=== PATIENT | female | born 1940 | race Caucasian/White ===

== ENCOUNTER 2016-10-10 10:00 | Outpatient (CLI) | payer MEDICARE, BC ==
[2016-10-10 10:53] VITALS: BP 149/68; PULSE 82; RESP 16; TEMP 97.7
[2016-10-10] MEDS ORDERED: DENOSUMAB 60 MG/ML 1 ML SYRINGE SQ ONE (23:00)
== END 2016-10-10 12:13 | disposition home or self-care (01) ==
LOC: PROCWHC3 10:00
PROVIDERS: ATTEND Family Medicine
DX: M81.0 Age-related osteoporosis without current pathological fracture (principal)
CPT/HCPCS: 96372; J0897

== ENCOUNTER → 2016-11-27 | Outpatient (CLI) | payer MEDICARE, BC ==
--- NOTE | 2016-11-30 11:38 | MM ---
Reason for exam: screening (asymptomatic). Last mammogram was performed 1 year and 9 months ago. History: Patient is postmenopausal and has history of colon cancer at age 72. Family history of breast cancer in grandmother. Physical Findings: A clinical breast exam by your physician is recommended on an annual basis and results should be correlated with mammographic findings. MG 3D Screening Mammo W/Cad Bilateral CC and MLO view(s) were taken. Prior study comparison: March 03, 2015, bilateral MG screening mammo w CAD. July 02, 2013, mammogram, performed at [facility]. The breast tissue is heterogeneously dense. This may lower the sensitivity of mammography. No significant changes when compared with prior studies. ASSESSMENT: Negative, BI-RAD 1 RECOMMENDATION: Routine screening mammogram of both breasts in 1 year.
== END | disposition home or self-care (01) ==
LOC: RADMAMWWP 12:48
PROVIDERS: ATTEND Family Medicine
DX: Z12.31 Encounter for screening mammogram for malignant neoplasm of breast (principal)
CPT/HCPCS: 77063; G0202

== ENCOUNTER → 2017-04-11 | Outpatient (CLI) | payer MEDICARE, BC ==
[~2017-04-11] MED LIST: DENOSUMAB 60 MG/ML 1 ML SYRINGE SQ ONE
[2017-04-11 10:05] VITALS: BP 140/65; PULSE 80; RESP 16; TEMP 97.7
== END ==
LOC: PROCWHC3 09:45
PROVIDERS: ATTEND Family Medicine
DX: M81.0 Age-related osteoporosis without current pathological fracture (principal)
CPT/HCPCS: 96372; J0897

== ENCOUNTER → 2017-10-15 | Outpatient (CLI) | payer MEDICARE, BC ==
[2017-10-15 10:06] VITALS: BP 126/80; PULSE 80; RESP 16; TEMP 97.8
== END | disposition home or self-care (01) ==
LOC: PROCWHC3 09:57
PROVIDERS: ATTEND Family Medicine
DX: M81.0 Age-related osteoporosis without current pathological fracture (principal)
CPT/HCPCS: 96372; J0897

== ENCOUNTER 2017-10-17 09:19 | Day surgery (SDC) | payer MEDICARE, BC ==
[2017-10-15 12:36] VITALS: BMI 20.1
[~2017-10-17 09:19] MED LIST changes: -DENOSUMAB 60 MG/ML 1 ML SYRINGE SQ ONE; +LACTATED RINGERS 1,000 ML IV SCH; +LIDOCAINE 1% 20 ML VIAL (10MG/ML) FOR IV START INTRADERMA PRN
[2017-10-17 09:53] VITALS: TEMP 98.6
[2017-10-17] MEDS ORDERED: LIDOCAINE 1% 20 ML VIAL (10MG/ML) FOR IV START INTRADERMA ONE (10:00)
[2017-10-17] MEDS ORDERED: PROPOFOL 10 MG/ML 20 ML VIAL IV ONE (10:05)
--- NOTE | 2017-10-17 10:28 | P.PCN ---
Date of Procedure: 10/17/17 Procedure(s) Performed: BRIEF HISTORY: Patient is a 77-year-old pleasant female, scheduled for an elective colonoscopy as a part of surveillance of prior history of colon cancer diagnosed in 2011 for which she underwent surgery. She did not need any chemotherapy. She is scheduled for a surveillance colonoscopy today. Her last colonoscopy was at the time of diagnosis of colon cancer in 2011 1 to the patient. PROCEDURE PERFORMED: Colonoscopy with biopsy and the tattooing with Samara ink. PREOPERATIVE DIAGNOSIS: History of colon cancer. IV sedation per Anesthesia. PROCEDURE: After informed consent was obtained, the patient, was brought into the endoscopy unit. IV sedation was administered by Anesthesia under continuous monitoring. Digital rectal examination was normal. Initially the Olympus CF- 160 flexible video colonoscope was then inserted in the rectum, gradually advanced into the cecum without any difficulty. Careful examination was performed as the scope was gradually being withdrawn. Ileocecal valve and the appendiceal orifice were visualized and appeared normal. Prep was excellent. Mucosa of the cecum, ascending colon, appeared normal. In the hepatic flexure there was a 3 cm polypoid ulcerated mass identified and multiple biopsies were done from this area. Following this tattooing was performed with Samara ink at the distal margin of the mass. The transverse colon, descending colon, sigmoid colon, and rectum appeared normal. There was evidence of anastomosis at 20 cm from the anal was there appeared normal. Retroflexion was performed in the rectum and there was a thickened mucosal fold just proximal to the dentate line suspicious for rectal prolapse and this was biopsied. The patient tolerated the procedure well. IMPRESSION: 3 cm ulcerated polypoid mass in the hepatic flexure status post multiple biopsies, tattooing with Samara ink Thickened mucosal folds in the distal rectum just proximal to the dentate line suggestive of rectal prolapse Scattered sigmoid diverticulosis RECOMMENDATIONS: Findings of this examination were discussed with the patient as well as a family. She was advised to follow with the biopsy results. She' ll be seen in the office in 4-5 days. She will also be scheduled for a CT of the abdomen and pelvis.
[2017-10-17 10:38] VITALS: PULSE 80
[2017-10-17 10:50] VITALS: BP 133/77; RESP 16
== END 2017-10-17 11:30 | disposition home or self-care (01) ==
LOC: ORWHC2ENDO 09:19
PROVIDERS: ATTEND Internal Medicine Gastroenterology
DX: Z12.11 Encounter for screening for malignant neoplasm of colon (principal); Z85.038 Personal history of other malignant neoplasm of large intestine; C18.3 Malignant neoplasm of hepatic flexure; K62.6 Ulcer of anus and rectum; Z98.0 Intestinal bypass and anastomosis status; K21.9 Gastro-esophageal reflux disease without esophagitis; I10 Essential (primary) hypertension; J44.9 Chronic obstructive pulmonary disease, unspecified; M81.0 Age-related osteoporosis without current pathological fracture; Z79.899 Other long term (current) drug therapy; Z88.8 Allergy status to other drugs, medicaments and biological substances; Z91.041 Radiographic dye allergy status
CPT/HCPCS: 88305; 45380; 45381; J2704

== ENCOUNTER → 2017-10-18 | Outpatient (CLI) | payer MEDICARE, BC | END | disposition home or self-care (01) | LOC: LABWHC1 12:17 | PROVIDERS: ATTEND Internal Medicine Gastroenterology | DX: R19.09 Other intra-abdominal and pelvic swelling, mass and lump (principal) | CPT/HCPCS: 36415; 82565 ==

== ENCOUNTER → 2017-10-19 | Outpatient (CLI) | payer MEDICARE, BC ==
--- NOTE | 2017-10-26 09:21 | MR ---
EXAMINATION TYPE: MR pelvis wo/w con DATE OF EXAM: 10/19/2017 COMPARISON: Outside CT abdomen and pelvis February 14, 2012 HISTORY: Colon mass per order. Possible mass or polyp in colon Per patient. History of colon cancer r emoved 2011. CONTRAST: Standard multiplanar, multisequence MRI departmental protocol utilizing 6 mL intravenous Gadavist karyn olinium contrast. Findings: There is artifact from Pessary type device in the vaginal canal. Visualized uterus is retro verted in shape. No free fluid is seen in pelvis. No suspicious small or large bowel dilatation is identified. Evaluation of bowel is suboptimal on MRI due to normal bowel pulsation or motion. No definitive greater than 1 cm pelvic adenopathy is seen. There is disc space narrowing lumbosacral junction. There are Tarlov cysts in the sacrum. Osseous str uctures show no suspicious edema or enhancement. Visualized groin regions are felt within normal limits. IMPRESSION: As above. No suspicious pelvic adenopathy. No osseous metastatic disease. Correlate with CT and/or co lonoscopy.
== END | disposition home or self-care (01) ==
LOC: RADMRIMAIN 09:31
PROVIDERS: ATTEND Internal Medicine Gastroenterology
DX: N85.4 Malposition of uterus (principal); R19.09 Other intra-abdominal and pelvic swelling, mass and lump
CPT/HCPCS: 72197; A9581

== ENCOUNTER → 2017-10-20 | Outpatient (CLI) | payer MEDICARE, BC ==
--- NOTE | 2017-10-21 20:30 | MR ---
EXAMINATION TYPE: MR abdomen wo/w con DATE OF EXAM: 10/20/2017 COMPARISON: Outside CT report. No images available. HISTORY: History of colon carcinoma with outside CT abdomen stating multiple hepatic lesions that are too small to accurately characterize. CONTRAST: Standard multiplanar, multisequence MRI of the abdomen was obtained per the departmental protocol uti lizing 6 mL intravenous Gadavist gadolinium contrast. FINDINGS: There is no signal dropout of the liver on out of phase imaging to correspond to hepatic st eatosis. The liver contour is smooth. Mild intrahepatic biliary ductal dilatation is identified. With in the left hepatic lobe there is a T2 hyperintense 6 mm lesion on image 27 of T2 weighted fat sat ax ial sequence. An additional T2 hyperintense 8mm lesion is seen within the left hepatic lobe on image 30. Another left hepatic lobe 6 mm lesion is seen on image 24 and within the right hepatic lobe subca psular region on image 23 there are lesions measuring 6 mm in 5 mm. Another inferior right hepatic lo be 5 mm lesion is seen on image 12. A scant amount of perihepatic fluid is seen. All of these hepatic lesions demonstrate no enhancement and are most characteristic of benign cysts. No abnormal postcont rast enhancement is seen within the liver. Nonenhancing bilateral subcentimeter cortical renal cysts and cholelithiasis are redemonstrated. Adre nal glands are unremarkable. Spleen and pancreas are also unremarkable. No gross evidence of adenopat hy. Bone marrow signal appears within normal limits. Right middle lobe 7 mm pulmonary nodule is parti ally visualized. CT thorax is recommended. IMPRESSION: 1. The previously seen too small to accurately characterize hepatic lesions all appear as a benign he patic cyst on MR. However attention should be paid on follow-up exams given the patient's history of colon carcinoma. 2. 7 mm right middle lobe probable pulmonary nodule. CT thorax is recommended for further evaluation. 3. Benign cortical renal cysts 4. Cholelithiasis.
== END | disposition home or self-care (01) ==
LOC: RADMRIMAIN 09:32
PROVIDERS: ATTEND Internal Medicine Gastroenterology
DX: K76.9 Liver disease, unspecified (principal); N28.1 Cyst of kidney, acquired; K80.20 Calculus of gallbladder without cholecystitis without obstruction
CPT/HCPCS: 74183; A9581

== ENCOUNTER → 2017-11-19 | Outpatient (CLI) | payer MEDICARE, BC ==
--- NOTE | 2017-11-19 11:14 | FL ---
EXAMINATION TYPE: FL barium enema DATE OF EXAM: 11/19/2017 COMPARISON: NONE HISTORY: Abnormal colonoscopy TECHNIQUE: Approximately 2 minutes and 7 seconds of fluoroscopy utilized. Limited view the abdomen demonstrates a nonspecific gas pattern with evidence of previous surgery. Ca theter is noted overlying the rectum. Gallstones and possible porcelain gallbladder noted. Diffuse os teopenia and degenerative changes spine. Calcification right upper quadrant could relate to a renal s tone. Barium was instilled through the rectum to the level the cecum. There is no evidence of obstruction. No annular constricting lesion. Could not exclude a polypoid lesion within the hepatic flexure. Corre late clinically. There is some limitation exam due to the patient's mobility. IMPRESSION: 1. Findings are suspicious for a polypoid lesion involving the right colon near the hepatic flexure a long the lateral wall measuring approximately 3 cm. Correlate with direct visualization. 2. No evidence of obstruction.
[2017-11-19 11:31] LABS: Anisocytosis Slight; Basophils % (A) 0 %; Eosinophils % (A) 0 %; HCT 35.1 % (34.0-46.0); HGB 10.2 gm/dL (11.4-16.0); Hypochromasia Marked; Lymphocytes # (A) 0.5 k/uL (1.0-4.8); Lymphocytes % (A) 10 %; MCH 20.5 pg (25.0-35.0); MCHC 29.1 g/dL (31.0-37.0); MCV 70.3 fL (80.0-100.0); Mean Platelet Volume 6.7; Microcytosis Marked; Monocytes # (A) 0.2 k/uL (0-1.0); Monocytes % (A) 4 %; Neutrophils # (A) 4.4 k/uL (1.3-7.7); Neutrophils % (A) 84 %; Platelet Count 276 k/uL (150-450); RDW 16.8 % (11.5-15.5); WBC 5.2 k/uL (3.8-10.6)
[2017-11-19 11:37] LABS: ALT 28 U/L (9-52); AST 28 U/L (14-36); Albumin 4.4 g/dL (3.5-5.0); Alkaline Phosphatase 78 U/L (38-126); Anion Gap 16 mmol/L; Blood Urea Nitrogen 16 mg/dL (7-17); Calcium 9.3 mg/dL (8.4-10.2); Carbon Dioxide 22 mmol/L (22-30); Chloride 104 mmol/L (98-107); Glucose 78 mg/dL (74-99); Potassium 4.2 mmol/L (3.5-5.1); Sodium 142 mmol/L (137-145); Total Bilirubin 0.6 mg/dL (0.2-1.3); Total Protein 7.4 g/dL (6.3-8.2)
--- NOTE | 2017-11-19 11:59 | XR ---
EXAMINATION TYPE: XR chest 2V DATE OF EXAM: 11/19/2017 COMPARISON: MRI abdomen October 20, 2017 HISTORY: Presurgical study. TECHNIQUE: Frontal and lateral views of the chest are obtained. FINDINGS: There is chronic parenchymal change without suspicious focal air space opacity, pleural ef fusion, or pneumothorax seen. The cardiac silhouette size is within normal limits with atherosclero tic change in the aorta. Rounded 6 mm nodule right lung base likely corresponds to patient's nipple o r nodule on MRI which is stable from outside CT right middle lobe performed February 14, 2012. The osse ous structures are demineralized.. Underlying S-shaped scoliosis is present. IMPRESSION: Chronic changes without acute pulmonary process.
== END | disposition home or self-care (01) ==
LOC: RADFLMAIN 08:17
PROVIDERS: ATTEND Surgery Plastic and Reconstructive Surgery
DX: C18.9 Malignant neoplasm of colon, unspecified (principal); R91.8 Other nonspecific abnormal finding of lung field; Z01.812 Encounter for preprocedural laboratory examination; Z91.041 Radiographic dye allergy status; Z88.8 Allergy status to other drugs, medicaments and biological substances
CPT/HCPCS: 36415; 71046; 74270; 80053; 85025

== ENCOUNTER 2017-11-29 09:04 | Inpatient (IN) | payer MEDICARE, BC ==
[~2017-11-29 09:04] MED LIST changes: +ACETAMINOPHEN TAB 500 MG TAB PO ONE; +ALVIMOPAN 12 MG CAPSULE PO ONE; +Antibiotics per Pharmacy 1 EACH MISC MISCELLANE PRN; +DEXAMETHASONE SOD PHOSPHATE 10 MG/ML 1 ML VIAL IV ONE; +HEPARIN SODIUM,PORCINE 5,000 UNIT/ML 1 ML VIAL SQ ONE; -LACTATED RINGERS 1,000 ML IV SCH; -LIDOCAINE 1% 20 ML VIAL (10MG/ML) FOR IV START INTRADERMA PRN; +MORPHINE SULFATE 2 MG/ML SYRINGE IV PRN; +ONDANSETRON 4 MG/2 ML VIAL IVP ONE; +ceFAZolin IN SWFI 2 GM/20 ML SYRINGE IVP ONE; +metroNIDAZOLE-NS PMX 500 MG in SALINE 1 100ML.BAG IVPB ONE
[2017-11-29 09:54] LABS: Glucose,Whole Blood 80 mg/dL (75-99)
[2017-11-29] MEDS: LACTATED RINGERS 1,000 ML IV SCH (10:06)
[2017-11-29 10:16] LABS: INR 1.1 (<1.2); Prothrombin Time 10.9 sec (9.0-12.0)
--- NOTE | 2017-11-29 10:32 | P.GSHP ---
History of Present Illness H&P Date: 11/29/17 CHIEF COMPLAINT: History of colon cancer. HISTORY OF PRESENT ILLNESS: Yesenia Do is a 77 years-old female who comes in with a previous history of colon cancer where she had previous left hemicolectomy done in the last 10+ years. This was done as a laparoscopic approach. She does remember all of the details related to her surgery with a partial colon resection. Separately, her daughter is at bedside. No reports of weight loss or abdominal pain. No blood in stools. Essentially, colonoscopies have been done for screening for previous history of colon cancer. PAST MEDICAL HISTORY: Please see list. PAST SURGICAL HISTORY: Please see list. MEDICATIONS: Please see list. ALLERGIES: Please see list. SOCIAL HISTORY: No illicit drug use FAMILY HISTORY: No reports of Crohn disease or ulcerative colitis. REVIEW OF ORGAN SYSTEMS: Cardiovascular: No reports of chest pain or heart attacks. CONSTITUTIONAL: No fevers or chills. HEENT: Denies any trouble with vision, hearing or nosebleeds. No difficulty swallowing. LYMPHATIC: The patient denies any lumps and bumps around the neck. ENDOCRINE: Denies any thyroid disorders. Denies any blood sugar glucose intolerance. RESPIRATORY: Denies pneumonia. Denies any troubles with breathing or dyspnea on exertion. GASTROINTESTINAL: Denies fatty food intolerance. Denies change in bowel habits and gas bloat. GENITOURINARY: Denies any blood in urine or increased urinary frequency. MUSCULOSKELETAL: Denies any back pain, stiffness or joint arthritis. NEUROLOGIC: Denies any numbness or tingling along the distal extremities. No seizure disorders or headaches. PSYCHIATRIC: Denies any depression or suicidal ideation. HEMATOLOGIC: Denies any abnormal bleeding or bruising. BREASTS: Denies any breast lumps, pain or nipple discharge. SKIN: No current skin cancer. No rash.CONSTITUTIONAL: No reports of fevers or chills. PHYSICAL EXAM: VITAL SIGNS: Stable Patient is a 77-year-old female. Abdomen: Soft and protuberant. GENERAL: Well developed and in no acute distress. Pleasant. HEENT: No sclera icterus. Extraocular movements grossly intact. Moist buccal mucosa. Head is atraumatic, normocephalic. Hears conversational speech. No nasal drainage. NECK: Supple without lymphadenopathy. No JV distention. CHEST: Non-labored respirations and equal bilateral excursions. CARDIOVASCULAR: Regular rate and rhythm. Palpable 2+ radial pulses. MUSCULOSKELETAL: No clubbing, cyanosis or edema. NEUROLOGIC: No focal or lateralizing signs. PSYCH: Appropriate affect. Alert and oriented to person, place and time. SKIN: Well perfused. Good skin turgor. STUDIES: MRI of the abdomen was reviewed in detail with findings of extremely large gallstone including no metastatic disease to the liver. Findings are consistent with liver cyst. Colonoscopy details were found and consistent with 3 cm ulcerated tumor of questionable hepatic flexure however the anatomy is different from her previous colon surgery. ASSESSMENT: 1. Colon cancer. 2. Previous history of colon cancer. 3. Large gallstones. PLAN: 1. I have recommended robotic cholecystectomy. 2. Also recommend CEA levels for colon cancer workup. 3. Also recommend robotic assisted approach was described for right hemicolectomy 4. She will need enhanced colon protocol. 5. Inpatient hospitalization for 2 nights and more 6. DVT prophylaxis. 7. Antibiotic prophylaxis. Past Medical History Past Medical History: Cancer, COPD, Hypertension, Osteoarthritis (OA) Additional Past Medical History / Comment(s): hx. colon cancer 2012-new reoccurence, osteoporosis, recent stress test History of Any Multi-Drug Resistant Organisms: None Reported Past Surgical History: Bowel Resection, Orthopedic Surgery, Tubal Ligation Additional Past Surgical History / Comment(s): cataract surg., D & C, ORIF left tib/fib, colonoscopy Past Anesthesia/Blood Transfusion Reactions: No Reported Reaction Smoking Status: Former smoker - Past Family History Sister(s) Family Medical History: Deep Vein Thrombosis (DVT) Medications and Allergies Home Medications Medication Instructions Recorded Confirmed Type amLODIPine [Norvasc] 5 mg PO DAILY 10/10/16 11/29/17 History Calcium Carb/Vitamin D3/Vit K1 1 each PO DAILY 10/15/17 11/19/17 History [Citracal Soft Chew] Cholecalciferol (Vitamin D3) 2,000 unit PO DAILY 10/15/17 11/19/17 History [Vitamin D3] Denosumab [Prolia] 60 mg SQ Q6M 10/15/17 11/29/17 History Allergies Allergy/AdvReac Type Severity Reaction Status Date / Time diazepam Allergy Unknown Verified 11/29/17 10:17 Iodinated Contrast- Oral and Allergy Rash/Hives Verified 11/29/17 10:17 IV Dye
[2017-11-29] MEDS ORDERED: fentaNYL (PF) 50 MCG/ML 2 ML AMP IVP ONE (10:36)
[2017-11-29] MEDS ORDERED: BUPIVACAINE (PF) 0.25% 30 ML VIAL SQ ONE (10:53)
[2017-11-29] MEDS ORDERED: ROCURONIUM BROMIDE 10 MG/ML 10 ML VIAL IV ONE (11:14)
[2017-11-29] MEDS ORDERED: SUCCINYLCHOLINE CHLORIDE 100 MG/5 ML SYR IV ONE (11:14)
[2017-11-29] MEDS ORDERED: fentaNYL (PF) 50 MCG/ML 2 ML AMP ONE (11:14)
[2017-11-29] MEDS ORDERED: NEOSTIGMINE 1 MG/ML 10 ML VIAL ONE (11:14)
[2017-11-29] MEDS ORDERED: LIDOCAINE HCL/PF 20 MG/ML 10 ML AMP ONE (11:14)
[2017-11-29] MEDS ORDERED: ePHEDrine SULFATE/0.9% NACL/PF 50 MG/5 ML SYRINGE IV ONE (11:14)
[2017-11-29] MEDS ORDERED: PROPOFOL 10 MG/ML 20 ML VIAL IV ONE (11:14)
[2017-11-29] MEDS ORDERED: GLYCOPYRROLATE 0.2 MG/ML 2 ML VIAL ONE (11:14)
[2017-11-29] MEDS ORDERED: PHENYLEPHRINE-0.9% NACL SYG 1 MG/10 ML SYRINGE ONE (11:14)
[2017-11-29] MEDS ORDERED: ceFAZolin 1,000 MG VIAL ONE (11:14)
[2017-11-29] MEDS ORDERED: ONDANSETRON 4 MG/2 ML VIAL IVP PRN ×2 (12:38→17:57)
[2017-11-29] MEDS ORDERED: NALBUPHINE 10 MG/ML AMPUL IV PRN (12:38)
[2017-11-29] MEDS ORDERED: NALOXONE 0.4 MG/ML 1 ML VIAL IV PRN (12:38)
[2017-11-29] MEDS ORDERED: LACTATED RINGERS 1,000 ML IV ONE ×6 (14:13→16:52)
[2017-11-29] MEDS ORDERED: SODIUM CHLORIDE 0.9% 50 ML with ceFAZolin 2,000 MG IV ONE ×2 (15:32)
[2017-11-29] MEDS ORDERED: METOCLOPRAMIDE 5 MG/ML 2 ML VIAL IVP PRN (17:57)
--- NOTE | 2017-11-29 17:57 | P.PCN ---
Date of Procedure: 11/29/17 Preoperative Diagnosis: Colon cancer, right colon Previous history of sigmoid colon cancer Symptomatic cholelithiasis Postoperative Diagnosis: Same, small bowel volvulus involving distal jejunum Procedure(s) Performed: 1. Robotic-assisted extended right hemicolectomy 2. Robotic-assisted cholecystectomy 3. Robotic-assisted reduction of small bowel volvulus, distal jejunum Anesthesia: GETA, local, epidural Surgeon: Nadja Blankenship Pathology: other (1. Gallbladder 2. Extended right hemicolectomy with appendix in total 3. Anastomosis) Condition: stable Disposition: floor Operative Findings: 1. Peritoneal deposits along the liver surface of unclear etiology 2. Chronic cholecystitis with multiple large gallstones over 2 cm 3. Moderate redundancy of hepatic flexure with blue dye found proximal to the hepatic flexure otherwise distal ascending colon 4. Small bowel volvulus involving the distal jejunum reduced 5. Indirect right inguinal hernia less than 2 cm without incarceration 6. Linear side to side anastomosis of ileum to mid transverse colon without tension or torsion 7. Mesenteric defect obliterated by greater omentum and transverse mesocolon 8. Clean contaminated case without spillage
[2017-11-29] MEDS ORDERED: SODIUM CHLORIDE 0.9% 1,000 ML IV SCH (18:00)
[2017-11-29] MEDS: BUPIVACAINE (PF) 0.5% 31.3 ML, fentaNYL (PF) 1,250 MCG in SODIUM CHLORIDE 0.9% 194 ML EPIDURAL PRN ×2 (18:07→19:02)
[2017-11-29 18:43] LABS: Glucose,Whole Blood 149 mg/dL (75-99)
[2017-11-29 18:59] LABS: Hemoglobin A1C 5.2 % (4.0-6.0)
[2017-11-29] MEDS: 0.9% NACL WITH KCL 20 MEQ/L 1,000 ML IV SCH (20:33)
[2017-11-29] MEDS: HEPARIN SODIUM,PORCINE 5,000 UNIT/ML 1 ML VIAL SQ SCH (20:50)
[2017-11-29] MEDS: ceFAZolin IN SWFI 2 GM/20 ML SYRINGE IVP SCH (20:50)
[2017-11-29] MEDS: FAMOTIDINE 20 MG/2 ML VIAL IV SCH (20:50)
[2017-11-30 00:50] LABS: Iron Saturation 5.78 (12.00-45.00)
[2017-11-30] MEDS: metroNIDAZOLE-NS PMX 500 MG in SALINE 1 100ML.BAG IVPB SCH ×2 (01:00→08:48)
[2017-11-30] MEDS: ceFAZolin IN SWFI 2 GM/20 ML SYRINGE IVP SCH (05:41)
[2017-11-30 08:33] LABS: Anisocytosis Slight; Basophils % (A) 0 %; Eosinophils % (A) 0 %; HCT 29.1 % (34.0-46.0); HGB 8.8 gm/dL (11.4-16.0); Hypochromasia Marked; Lymphocytes # (A) 0.6 k/uL (1.0-4.8); Lymphocytes % (A) 6 %; MCH 20.9 pg (25.0-35.0); MCHC 30.2 g/dL (31.0-37.0); MCV 69.1 fL (80.0-100.0); Mean Platelet Volume 7.1; Microcytosis Marked; Monocytes # (A) 0.6 k/uL (0-1.0); Monocytes % (A) 6 %; Neutrophils # (A) 7.9 k/uL (1.3-7.7); Neutrophils % (A) 86 %; Platelet Count 222 k/uL (150-450); RBC 4.21 m/uL (3.80-5.40); RDW 17.2 % (11.5-15.5); WBC 9.2 k/uL (3.8-10.6)
[2017-11-30] MEDS: HEPARIN SODIUM,PORCINE 5,000 UNIT/ML 1 ML VIAL SQ SCH ×2 (08:45→22:22)
[2017-11-30 08:46] LABS: Anion Gap 5 mmol/L; Blood Urea Nitrogen 10 mg/dL (7-17); Calcium 7.5 mg/dL (8.4-10.2); Carbon Dioxide 25 mmol/L (22-30); Chloride 109 mmol/L (98-107); Glucose 95 mg/dL (74-99); Sodium 139 mmol/L (137-145)
[2017-11-30] MEDS: FAMOTIDINE 20 MG/2 ML VIAL IV SCH ×2 (08:47→22:19)
[2017-11-30] MEDS: amLODIPine 5 MG TAB PO SCH (08:48)
[2017-11-30] MEDS: ALVIMOPAN 12 MG CAPSULE PO SCH ×2 (08:48→22:22)
[2017-11-30] MEDS: 0.9% NACL WITH KCL 20 MEQ/L 1,000 ML IV SCH ×2 (09:50→22:21)
--- NOTE | 2017-11-30 13:54 | P.PN ---
<Shanelle Garcia - Last Filed: 11/30/17 13:43> Subjective Progress Note Date: 11/30/17 77-year-old seen at bedside. Patient is sitting up in bed. taking a clear liquid diet. With no nausea vomiting Epidural in place per anesthesia for pain control. Indwelling Galloway catheter marcela urine. Currently denies any numbness or tingling to the lower extremities. States pain medication effective for pain control. Patient is postop November 29 robotic-assisted extended right hemicolectomy, cholecystectomy, reduction of small bowel volvulus distal duodenum for symptomatic cholelithiasis,and right colon cancer, Objective - Vital Signs Vital signs: Vital Signs Temp 98.2 F 11/30/17 07:52 Pulse 89 11/30/17 07:52 Resp 16 11/30/17 07:52 BP 118/52 11/30/17 07:52 Pulse Ox 97 11/30/17 07:52 Intake & Output 11/29/17 11/30/17 11/30/17 18:59 06:59 18:59 Intake Total 3150 100 Output Total 730 1775 1100 Balance 2420 -1675 -1100 Weight 54.431 kg 54.431 kg Intake: IV 3150 100 Output: Urine 650 1775 1100 Uretheral (Galloway) 1100 Estimated Blood Loss 80 Other: Voiding Method Indwelling Catheter Indwelling Catheter # Voids 2 # Bowel Movements 1 - Exam Physical exam Pleasant 77-year-old female sitting up in bed taking a clear liquid diet Lungs adequate air movement bilaterally nasal cannula 2 L sats are 97% Heart S1-S2 audible regular Abdomen surgical dressing site dry few hypoactive bowel tones surgical tenderness appropriate nondistended abdominal binder in place indwelling Galloway catheter in place states is not passing gas no stool Extremities Venodyne's on to the bilateral lower extremities - Labs CBC & Chem 7: 11/30/17 07:55 11/30/17 07:55 Labs: Abnormal Lab Results - Last 24 Hours (Table) 11/29/17 11/29/17 11/30/17 Range/Units 10:22 18:40 07:55 Hgb 8.8 L (11.4-16.0) gm/dL Hct 29.1 L (34.0-46.0) % MCV 69.1 L (80.0-100.0) fL MCH 20.9 L (25.0-35.0) pg MCHC 30.2 L (31.0-37.0) g/dL RDW 17.2 H (11.5-15.5) % Neutrophils # 7.9 H (1.3-7.7) k/uL Lymphocytes # 0.6 L (1.0-4.8) k/uL Chloride (98-107) mmol/L POC Glucose (mg/dL) 149 H (75-99) mg/dL Calcium (8.4-10.2) mg/dL Iron 20 L (50-170) ug/dL Iron Saturation 5.78 L (12.00-45.00) Ferritin 5.5 L (10.0-291.0) ng/mL 11/30/17 Range/Units 07:55 Hgb (11.4-16.0) gm/dL Hct (34.0-46.0) % MCV (80.0-100.0) fL MCH (25.0-35.0) pg MCHC (31.0-37.0) g/dL RDW (11.5-15.5) % Neutrophils # (1.3-7.7) k/uL Lymphocytes # (1.0-4.8) k/uL Chloride 109 H (98-107) mmol/L POC Glucose (mg/dL) (75-99) mg/dL Calcium 7.5 L (8.4-10.2) mg/dL Iron (50-170) ug/dL Iron Saturation (12.00-45.00) Ferritin (10.0-291.0) ng/mL Assessment and Plan Assessment: Impression Right colon cancer previous history of sigmoid colon cancer diagnosed 2011 with new recurrence right colon cancer Symptomatic cholelithiasis Robotic-assisted extended right hemicolectomy, cholecystectomy, reduction of small bowel volvulus, distal duodenum for right colon cancer done November 29 Iron deficiency anemia Anemia suspect of chronic illness Plan Pain control per epidural per anesthesia protocol Indwelling Galloway catheter while epidural in place Continue postop surgical care DVT and GI prophylaxis Increase activity Encourage the use of the incentive spirometer The above impression and plan of care have been discussed and directed by signing physician. Shanelle Garcia nurse practitioner acting as scribe for signing physician. <Nadja Blankenship - Last Filed: 11/30/17 16:49> Objective - Vital Signs Vital signs: Vital Signs Temp 98.0 F 11/30/17 15:00 Pulse 91 11/30/17 15:00 Resp 16 11/30/17 15:00 BP 124/62 11/30/17 15:00 Pulse Ox 97 11/30/17 15:00 Intake & Output 11/29/17 11/30/17 11/30/17 18:59 06:59 18:59 Intake Total 3150 100 600 Output Total 730 1775 1100 Balance 2420 -5265 -500 Weight 54.431 kg 54.431 kg 54.431 kg Intake: IV 3150 100 600 0.9% NaCl with KCl 20 Meq 600 /l 1,000 ml @ 75 mls/hr IV .[id number] ANDREINA Rx#: [id number] Output: Urine 650 1775 1100 Uretheral (Galloway) 1100 Estimated Blood Loss 80 Other: Voiding Method Indwelling Catheter Indwelling Catheter # Voids 2 # Bowel Movements 1 - Labs CBC & Chem 7: 11/30/17 07:55 11/30/17 07:55 Labs: Abnormal Lab Results - Last 24 Hours (Table) 11/29/17 11/29/17 11/30/17 Range/Units 10:22 18:40 07:55 Hgb 8.8 L (11.4-16.0) gm/dL Hct 29.1 L (34.0-46.0) % MCV 69.1 L (80.0-100.0) fL MCH 20.9 L (25.0-35.0) pg MCHC 30.2 L (31.0-37.0) g/dL RDW 17.2 H (11.5-15.5) % Neutrophils # 7.9 H (1.3-7.7) k/uL Lymphocytes # 0.6 L (1.0-4.8) k/uL Chloride (98-107) mmol/L POC Glucose (mg/dL) 149 H (75-99) mg/dL Calcium (8.4-10.2) mg/dL Iron 20 L (50-170) ug/dL Iron Saturation 5.78 L (12.00-45.00) Ferritin 5.5 L (10.0-291.0) ng/mL 11/30/17 Range/Units 07:55 Hgb (11.4-16.0) gm/dL Hct (34.0-46.0) % MCV (80.0-100.0) fL MCH (25.0-35.0) pg MCHC (31.0-37.0) g/dL RDW (11.5-15.5) % Neutrophils # (1.3-7.7) k/uL Lymphocytes # (1.0-4.8) k/uL Chloride 109 H (98-107) mmol/L POC Glucose (mg/dL) (75-99) mg/dL Calcium 7.5 L (8.4-10.2) mg/dL Iron (50-170) ug/dL Iron Saturation (12.00-45.00) Ferritin (10.0-291.0) ng/mL Assessment and Plan (1) Carcinoma of hepatic flexure Current Visit: Yes Status: Acute Code(s): C18.3 - MALIGNANT NEOPLASM OF HEPATIC FLEXURE SNOMED Code(s): 587670505 (2) History of malignant neoplasm of colorectal region Current Visit: Yes Status: Acute Code(s): Z85.048 - PRSNL HX OF MALIG NEOPLM OF RECTUM, RECTOSIG JUNCT, AND ANUS SNOMED Code(s): 705304243 (3) Small bowel volvulus Current Visit: Yes Status: Acute Code(s): K56.2 - VOLVULUS SNOMED Code(s) : 539880113 (4) Cholelithiasis and cholecystitis without obstruction Current Visit: Yes Status: Acute Code(s): K80.10 - CALCULUS OF GALLBLADDER W CHRONIC CHOLECYST W/O OBSTRUCTION SNOMED Code(s): 35285359 (5) Osteoporosis Current Visit: Yes Status: Acute Code(s): M81.0 - AGE-RELATED OSTEOPOROSIS W /O CURRENT PATHOLOGICAL FRACTURE SNOMED Code(s): 04452468 (6) Iron deficiency anemia Current Visit: Yes Status: Acute Code(s): D50.9 - IRON DEFICIENCY ANEMIA, UNSPECIFIED SNOMED Code(s): 30776500 Plan: Recommend iron infusion for iron deficiency anemia
[2017-11-30 15:05] VITALS: BMI 18.8
[2017-11-30] MEDS ORDERED: HYDROcodone/APAP 5-325MG 1 EACH TAB PO PRN (16:44)
[2017-11-30] MEDS ORDERED: TAMSULOSIN 0.4 MG CAP.ER.24H PO STA (16:45)
--- NOTE | 2017-11-30 16:47 | P.PN ---
Progress Note - Text Progress Note Date: 11/30/17 Patient had a bowel movement. Pain is well controlled. Galloway catheter discontinued. She is passing flatus. Discontinue epidural. Flomax to help with urination. Discharge home in the morning.
[2017-11-30 17:51] LABS: Anisocytosis Slight; HCT 32.2 % (34.0-46.0); HGB 9.8 gm/dL (11.4-16.0); Hypochromasia Marked; MCH 21.8 pg (25.0-35.0); MCHC 30.4 g/dL (31.0-37.0); MCV 71.6 fL (80.0-100.0); Mean Platelet Volume 6.4; Microcytosis Moderate; Platelet Count 271 k/uL (150-450); RDW 17.6 % (11.5-15.5); WBC 11.4 k/uL (3.8-10.6)
[2017-11-30] MEDS: SODIUM FERRIC GLUCONAT-SUCROSE 125 MG in SODIUM CHLORIDE 0.9% 100 ML IVPB SCH (17:51)
[2017-12-01 07:45] LABS: Anion Gap 8 mmol/L; Blood Urea Nitrogen 7 mg/dL (7-17); Calcium 7.7 mg/dL (8.4-10.2); Carbon Dioxide 23 mmol/L (22-30); Chloride 111 mmol/L (98-107); Glucose 84 mg/dL (74-99); Potassium 3.5 mmol/L (3.5-5.1); Sodium 142 mmol/L (137-145)
[2017-12-01 07:51] LABS: Anisocytosis Slight; Basophils % (A) 0 %; Eosinophils % (A) 0 %; HCT 28.1 % (34.0-46.0); Hypochromasia Marked; Lymphocytes # (A) 0.9 k/uL (1.0-4.8); Lymphocytes % (A) 14 %; MCH 20.7 pg (25.0-35.0); MCHC 29.5 g/dL (31.0-37.0); MCV 70.2 fL (80.0-100.0); Mean Platelet Volume 6.5; Microcytosis Marked; Monocytes # (A) 0.4 k/uL (0-1.0); Monocytes % (A) 7 %; Neutrophils # (A) 4.7 k/uL (1.3-7.7); Neutrophils % (A) 77 %; Platelet Count 211 k/uL (150-450); RBC 4.01 m/uL (3.80-5.40); RDW 17.7 % (11.5-15.5); WBC 6.1 k/uL (3.8-10.6)
[2017-12-01 07:54] LABS: HGB 8.3 gm/dL (11.4-16.0)
[2017-12-01 08:30] VITALS: BP 117/54; PULSE 92; RESP 20; TEMP 98.3
[2017-12-01] MEDS ORDERED: TAMSULOSIN 0.4 MG CAP.ER.24H PO SCH (08:30)
[2017-12-01] MEDS: amLODIPine 5 MG TAB PO SCH (09:06)
[2017-12-01] MEDS: FAMOTIDINE 20 MG/2 ML VIAL IV SCH ×2 (09:06→09:08)
[2017-12-01] MEDS: ALVIMOPAN 12 MG CAPSULE PO SCH (09:06)
[2017-12-01] MEDS: HEPARIN SODIUM,PORCINE 5,000 UNIT/ML 1 ML VIAL SQ SCH (09:06)
[2017-12-01] MEDS: SODIUM FERRIC GLUCONAT-SUCROSE 125 MG in SODIUM CHLORIDE 0.9% 100 ML IVPB SCH (09:12)
--- NOTE | 2017-12-01 11:30 | P.PN ---
Progress Note - Text 11/30 1829 77 year old female s/p hemicolectomy by Dr Gutierrez.pt has an epidural for post op pain control with the solution running at 3cc/hr. pt is very comforable with a pain score of 2.She does not have any complaints of n/v or pruritis.Epidural to be be d/katherine as per surgeon's request.
[2017-12-01] MEDS: 0.9% NACL WITH KCL 20 MEQ/L 1,000 ML IV SCH (11:39)
--- NOTE | 2017-12-01 12:57 | P.PN ---
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 She is status post robotic -assisted cholecystectomy including right hemicolectomy and reduction of small bowel volvulus. She is passing flatus. She is tolerating diet. She's having bowel movements. She is also freely urinating. Her pain is well controlled with pain pills. Objective - Vital Signs Vital signs: Vital Signs Temp 98.3 F 12/01/17 07:00 Pulse 92 12/01/17 07:00 Resp 20 12/01/17 07:00 BP 117/54 12/01/17 07:00 Pulse Ox 93 L 12/01/17 07:00 Intake & Output 11/30/17 12/01/17 12/01/17 18:59 06:59 18:59 Intake Total 600 360 Output Total 1500 Balance -900 360 Weight 54.431 kg Intake: IV 600 0.9% NaCl with KCl 20 Meq 600 /l 1,000 ml @ 75 mls/hr IV .[id number] ANDREINA Rx#: [id number] Oral 360 Output: Urine 1500 Uretheral (Galloway) 1100 Other: Voiding Method Indwelling Catheter Toilet # Voids 2 # Bowel Movements 1 - Exam GENERAL: Well developed and in no acute distress. Pleasant. HEENT: No sclera icterus. Extraocular movements grossly intact. Moist buccal mucosa. Head is atraumatic, normocephalic. Hears conversational speech. No nasal drainage. CHEST: Non-labored respirations and equal bilateral excursions. CARDIOVASCULAR: Regular rate and rhythm. Palpable 2+ radial pulses. ABDOMEN: Soft, nontender. Nondistended. Incisions clean dry and intact MUSCULOSKELETAL: No clubbing, cyanosis or edema. NEUROLOGIC: No focal or lateralizing signs. PSYCH: Appropriate affect. Alert and oriented to person, place and time. SKIN: Good skin turgor. Well perfused. - Labs CBC & Chem 7: 12/01/17 06:28 12/01/17 06:28 Labs: Abnormal Lab Results - Last 24 Hours (Table) 11/30/17 12/01/17 12/01/17 Range/Units 17:36 06:28 06:28 WBC 11.4 H (3.8-10.6) k/uL Hgb 9.8 L 8.3 L D (11.4-16.0) gm/dL Hct 32.2 L 28.1 L (34.0-46.0) % MCV 71.6 L 70.2 L (80.0-100.0) fL MCH 21.8 L 20.7 L (25.0-35.0) pg MCHC 30.4 L 29.5 L (31.0-37.0) g/dL RDW 17.6 H 17.7 H (11.5-15.5) % Lymphocytes # 0.9 L (1.0-4.8) k/uL Chloride 111 H (98-107) mmol/L Calcium 7.7 L (8.4-10.2) mg/dL Assessment and Plan (1) Carcinoma of hepatic flexure Current Visit: Yes Status: Acute Code(s): C18.3 - MALIGNANT NEOPLASM OF HEPATIC FLEXURE SNOMED Code(s): 712196680 (2) History of malignant neoplasm of colorectal region Current Visit: Yes Status: Acute Code(s): Z85.048 - PRSNL HX OF MALIG NEOPLM OF RECTUM, RECTOSIG JUNCT, AND ANUS SNOMED Code(s): 498150445 (3) Small bowel volvulus Current Visit: Yes Status: Acute Code(s): K56.2 - VOLVULUS SNOMED Code(s) : 046624032 (4) Cholelithiasis and cholecystitis without obstruction Current Visit: Yes Status: Acute Code(s): K80.10 - CALCULUS OF GALLBLADDER W CHRONIC CHOLECYST W/O OBSTRUCTION SNOMED Code(s): 51309642 (5) Osteoporosis Current Visit: Yes Status: Acute Code(s): M81.0 - AGE-RELATED OSTEOPOROSIS W /O CURRENT PATHOLOGICAL FRACTURE SNOMED Code(s): 40177234 (6) Iron deficiency anemia Current Visit: Yes Status: Acute Code(s): D50.9 - IRON DEFICIENCY ANEMIA, UNSPECIFIED SNOMED Code(s): 28392777 Plan: 1. She has done extremely well. 2. Labs reviewed. Patient reports no signs of bleeding. Findings consistent with chronic iron deficiency anemia. 3. Immediate follow-up in the office in 3 days. 4. Patient is clear for discharge.
--- NOTE | 2017-12-03 11:11 | P.OP ---
Date of Procedure: 11/29/17 Description of Procedure: Date of Procedure: 11/15/17 SURGEON: OSMANY DOMINGUEZ MD JEWEL OLIVING MACHINE OPERATOR: 1. DANY JURADO 2. LENKA PIMENTEL Preoperative Diagnosis: 1. Malignant colon polyp at hepatic flexure 2. Iron deficiency anemia due to chronic blood loss 3. Osteoporosis 4. Personal history of sigmoid resection from previous colon cancer 5. Hypertensive heart disease 6. Symptomatic cholelithiasis Postoperative Diagnosis: 1. Malignant colon polyp at distal ascending colon /proximal hepatic flexure 2. Iron deficiency anemia due to chronic blood loss 3. Osteoporosis 4. Personal history of sigmoid resection from previous colon cancer 5. Hypertensive heart disease 6. Right inguinal hernia 7. 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 Symptomatic cholelithiasis 9. Peritoneal deposits Procedure(s) Performed: 1. Robotic-assisted daVinci Xi extended right hemicolectomy 2. Robotic-assisted daVinci Xi cholecystectomy 3. Robotic-assisted daVinci Xi reduction of small bowel volvulus, distal jejunum Anesthesia: GETA, local, epidural Surgeon: Osmany Dominguez EBL: 75 mL Pathology: other (1. Gallbladder 2. Extended right hemicolectomy with appendix in total 3. Anastomosis) Condition: stable Disposition: floor Operative Findings: 1. Peritoneal deposits along the liver surface of unclear etiology 2. Chronic cholecystitis with multiple large gallstones over 2 cm 3. Moderate redundancy of hepatic flexure with blue dye found proximal to the hepatic flexure otherwise distal ascending colon 4. Small bowel volvulus involving the distal jejunum reduced 5. Indirect right inguinal hernia less than 2 cm without incarceration 6. Linear side to side antiperistaltic anastomosis of ileum to mid transverse colon without tension or torsion 7. Mesenteric defect obliterated by greater omentum and transverse mesocolon 8. Clean contaminated case without spillage INDICATIONS: The patient is a 77-year-old female with personal history of previous sigmoid resection from colon cancer more than 5 years ago. She had a recent colonoscopy now demonstrating a new malignant polyp of the hepatic flexure. Benefits and risks, including infection, open surgery possibility for additional surgery was discussed at length. Informed consent was obtained. All questions of the patient and family were answered. DESCRIPTION: Earlier the patient had undergone a bowel prep using the enhanced colon recovery program. The patient was transferred to the operating room and placed in supine position. After general anesthetic, a jules catheter was placed. The abdomen was then prepped and draped in standard sterile fashion as Ioban was placed along the abdomen to minimize any contamination of skin floor. After a timeout protocol was performed, attention was then brought to the left upper quadrant whereby a 0 degree 5 mm laparoscopic trocar entry was performed. The abdominal cavity was entered and insufflated to 15 mmHg pressure, which she tolerated well. Diagnostic laparoscopy demonstrated no injury to bowel, viscera or mesentery. The liver surface was remarkable for multiple peritoneal studding of unclear etiology. A less than 2-cm right indirect inguinal hernia was identified without incarceration. Tattooing was found along the abdominal wall of the right upper quadrant and proximal hepatic flexure. Next a robotic 12-mm trocar was placed along the left upper quadrant after exchanging the 5-mm camera port. An 8 mm port was placed just left lateral to the umbilicus for the camera port. An 8 mm port was placed along the right lateral abdominal wall and right upper quadrant. Ports were placed 8 cm apart from each other including 15-20 cm away from the target anatomy of the right pelvis. The patient was then placed in Trendelenburg position, at least 14. The robotic da Abhijit XI system was primed and docked from the left side of the patient. Using atraumatic graspers and vessel sealer, the robotic system was docked and primed as described. Instruments were interchanged by the material assistant including scissors, needle delivery route driver , robotic stapler and vessel sealer. The robot stapler was prepared along the left upper abdominal wall. Next, attention was brought to identify the cecum. A stay suture using 3-0 silk was placed along the anterior serosa of the ascending colon including along the terminal ileum. The appendix was identified and used as a handle during the case. The terminal ileum and ascending colon mesentery was mobilized using a vessel sealer whereby the colon was marked and tagged. Using robot stapler 45 mm white load, the distal ileum was divided 5 cm proximal to the ileocecal valve. The mesentery of the ascending colon was mobilized towards the midline using a vessel sealer. As the specimen was found along the hepatic flexure which was moderately redundant and adherent to the retroperitoneum, the colon was mobilized to the mid transverse mesocolon beyond the right colic and middle colic artery for an extended right hemicolectomy. Next, the mid transverse colon colon was divided using the robotic stapler 45 mm blue loads. The rest of the colon mesentery was mobilized using vessel sealer including using blunt dissection. The vascular pedicles were controlled using large PLASTIC clips and vessel sealer. The proximal colon and distal ileum were brought in an antiperistaltic fashion [id number] anastomosis after placing interrupted sutures along the proposed lelia-lumen using 3-0 silks. Along the tinea coli of the proximal colon including distal limbs, a colotomy and enterotomy was prepared along both limbs along the antimesenteric border. Next, 45 mm blue stapler loads were fired to create the lelia-lumen. The lelia-lumen was reapproximated using 3-0 silk followed by 45 mm blue load for closure of the enterostomy. The mesenteric defect was obliterated by intra-abdominal fat to decrease risk of internal hernia. Separately, small bowel volvulus was identified of the distal jejunum and reduced. All needles were removed from the abdominal cavity. The robot was undocked. I re-scrubbed into the case. Via the 12 mm port of the left upper quadrant, the gallbladder including the right colon was removed using Endo Catch bag. All sponges were removed from the abdominal cavity. The resected colon was brought out through the 12 mm trocar of the left upper quadrant after widening the skin incision to 4-cm. No contamination had occurred throughout this portion of the case. The 12-mm fascial defect was oversewn using 0 Vicryl and a Eusebio Owen. Next all pneumoperitoneum was evacuated from the abdominal cavity. The 8-mm trocar sites were reapproximated using 4-0 Monocryl in an interrupted subcuticular fashion. Suture of 4-0 Monocryl was used to reapproximate the subcutaneous tissue in an interrupted subcuticular fashion of the wide incision. Local anesthetic was infiltrated to all wounds for postop analgesia. All incisions were also cleansed with diluted hydrogen peroxide. An Optifoam surgical dressing was placed over the left upper quadrant incision of the colon extraction site. Liquid glue was applied to the rest of the skin incisions. The patient had tolerated the procedure well. The patient was extubated successfully. Intraoperative photos were reviewed with the patient's family who were overall pleased with the level of care. The patient was transferred to the postanesthesia care unit in stable condition. Console time 303 minutes
--- NOTE | 2017-12-03 11:13 | P.DS ---
Providers Date of admission: 11/29/17 09:04 Expected date of discharge: 12/01/17 Attending physician: Nadja Blankenship Primary care physician: Tomas Vallejo - Discharge Diagnosis(es) (1) Carcinoma of hepatic flexure Status: Acute (2) History of malignant neoplasm of colorectal region Status: Acute (3) Small bowel volvulus Status: Acute (4) Cholelithiasis and cholecystitis without obstruction Status: Acute (5) Osteoporosis Status: Acute (6) Iron deficiency anemia Status: Acute Hospital Course: Postoperative Diagnosis: 1. Malignant colon polyp at distal ascending colon /proximal hepatic flexure 2. Iron deficiency anemia due to chronic blood loss 3. Osteoporosis 4. Personal history of sigmoid resection from previous colon cancer 5. Hypertensive heart disease 6. Right inguinal hernia 7. 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 Symptomatic cholelithiasis 9. Peritoneal deposits COURSE: The patient is a 77-year-old female diagnosed with hepatic flexure carcinoma. She underwent extended right hemicolectomy including cholecystectomy for symptomatic gallstones. Intraoperative findings including small bowel volvulus of the distal jejunum was reduced. Post procedure, she had done well. Laboratory studies were consistent with iron deficiency anemia for which she had iron infusion. Prior to discharge, she was passing flatus. Pain was well-controlled. Discharge instructions reviewed. Procedures: Procedure(s) Performed: 1. Robotic-assisted daVinci Xi extended right hemicolectomy 2. Robotic-assisted daVinci Xi cholecystectomy 3. Robotic-assisted daVinci Xi reduction of small bowel volvulus, distal jejunum Anesthesia: GETA, local, epidural Surgeon: Nadja Blankenship EBL: 75 mL Pathology: other (1. Gallbladder 2. Extended right hemicolectomy with appendix in total 3. Anastomosis) Condition: stable Disposition: floor Operative Findings: 1. Peritoneal deposits along the liver surface of unclear etiology 2. Chronic cholecystitis with multiple large gallstones over 2 cm 3. Moderate redundancy of hepatic flexure with blue dye found proximal to the hepatic flexure otherwise distal ascending colon 4. Small bowel volvulus involving the distal jejunum reduced 5. Indirect right inguinal hernia less than 2 cm without incarceration 6. Linear side to side antiperistaltic anastomosis of ileum to mid transverse colon without tension or torsion 7. Mesenteric defect obliterated by greater omentum and transverse mesocolon 8. Clean contaminated case without spillage Patient Condition at Discharge: Stable Plan - Discharge Summary Discharge Rx Participant: Yes New Discharge Prescriptions: New HYDROcodone/APAP 5-325MG [Lincoln 5-325] 1 tab PO Q6HR PRN #20 tab PRN Reason: Pain Continue amLODIPine [Norvasc] 5 mg PO DAILY Cholecalciferol (Vitamin D3) [Vitamin D3] 2,000 unit PO DAILY Calcium Carb/Vitamin D3/Vit K1 [Citracal Soft Chew] 1 tab PO DAILY Denosumab [Prolia] 60 mg SQ Q180D Discharge Medication List amLODIPine [Norvasc] 5 mg PO DAILY 10/10/16 [History] Calcium Carb/Vitamin D3/Vit K1 [Citracal Soft Chew] 1 tab PO DAILY 10/15/17 [ History] Cholecalciferol (Vitamin D3) [Vitamin D3] 2,000 unit PO DAILY 10/15/17 [History] Denosumab [Prolia] 60 mg SQ Q180D 10/15/17 [History] HYDROcodone/APAP 5-325MG [Lincoln 5-325] 1 tab PO Q6HR PRN #20 tab 11/30/17 [Rx] Follow up Appointment(s)/Referral(s): Nadja Blankenship MD [STAFF PHYSICIAN] - 12/04/17 Patient Instructions/Handouts: Colectomy (GEN), Laparoscopic Bowel Resection ( DC), Colectomy Diet (DC) Activity/Diet/Wound Care/Special Instructions: No lifting over 4 pounds in 4 weeks. No bath tub soaks. May shower. Drink protein shakes three times daily. Discharge Disposition: HOME SELF-CARE
== END 2017-12-01 14:22 | disposition home or self-care (01) | DRG 329 ==
LOC: 2ORMAIN 09:04 → 3SUR 17:55
PROVIDERS: ADMIT Surgery Plastic and Reconstructive Surgery; ATTEND Surgery Plastic and Reconstructive Surgery
PROC: 0FT44ZZ Resection of Gallbladder, Percutaneous Endoscopic Approach (ICD-10-PCS; principal; 2017-11-29 11:00)
PROC: 0DSA4ZZ Reposition Jejunum, Percutaneous Endoscopic Approach (ICD-10-PCS; principal; 2017-11-29 11:00)
PROC: 8E0W4CZ Robotic Assisted Procedure of Trunk Region, Percutaneous Endoscopic Approach (ICD-10-PCS; principal; 2017-11-29 11:00)
PROC: 0DTF4ZZ Resection of Right Large Intestine, Percutaneous Endoscopic Approach (ICD-10-PCS; principal; 2017-11-29 11:00)
DX: C18.3 Malignant neoplasm of hepatic flexure (principal); K56.2 Volvulus; K80.10 Calculus of gallbladder with chronic cholecystitis without obstruction; J44.9 Chronic obstructive pulmonary disease, unspecified; D50.0 Iron deficiency anemia secondary to blood loss (chronic); I11.9 Hypertensive heart disease without heart failure; K40.90 Unilateral inguinal hernia, without obstruction or gangrene, not specified as recurrent; M81.0 Age-related osteoporosis without current pathological fracture; I34.0 Nonrheumatic mitral (valve) insufficiency; Z79.899 Other long term (current) drug therapy; Z85.038 Personal history of other malignant neoplasm of large intestine; Z87.891 Personal history of nicotine dependence; Z88.8 Allergy status to other drugs, medicaments and biological substances; Z91.041 Radiographic dye allergy status; Z98.49 Cataract extraction status, unspecified eye
CPT/HCPCS: 80048; 82728; 83036; 83540; 83550; 84132; 85025; 85027; 85610; 85730; 86850; 86900; 86901

== ENCOUNTER → 2018-01-07 | Outpatient (CLI) | payer MEDICARE, BC ==
--- NOTE | 2018-01-08 13:38 | MM ---
Reason for exam: screening (asymptomatic). Last mammogram was performed 1 year and 1 month ago. History: Patient is postmenopausal and has history of colon cancer at age 72. Family history of breast cancer in grandmother. Physical Findings: A clinical breast exam by your physician is recommended on an annual basis and results should be correlated with mammographic findings. MG 3D Screening Mammo W/Cad Bilateral CC and MLO view(s) were taken. Prior study comparison: November 27, 2016, bilateral MG 3d screening mammo w/cad. March 03, 2015, bilateral MG screening mammo w CAD. The breast tissue is heterogeneously dense. This may lower the sensitivity of mammography. Benign calcifications bilaterally. No suspicious abnormality. No significant changes when compared with prior studies. ASSESSMENT: Benign, BI-RAD 2 RECOMMENDATION: Routine screening mammogram of both breasts in 1 year.
== END | disposition home or self-care (01) ==
LOC: RADMAMWWP 12:44
PROVIDERS: ATTEND Obstetrics & Gynecology
DX: Z12.31 Encounter for screening mammogram for malignant neoplasm of breast (principal)
CPT/HCPCS: 77063; 77067

== ENCOUNTER → 2018-04-15 | Outpatient (CLI) | payer MEDICARE, BC ==
[~2018-04-15] MED LIST changes: -ACETAMINOPHEN TAB 500 MG TAB PO ONE; -ALVIMOPAN 12 MG CAPSULE PO ONE; -Antibiotics per Pharmacy 1 EACH MISC MISCELLANE PRN; +DENOSUMAB 60 MG/ML 1 ML SYRINGE SQ ONE; -DEXAMETHASONE SOD PHOSPHATE 10 MG/ML 1 ML VIAL IV ONE; -HEPARIN SODIUM,PORCINE 5,000 UNIT/ML 1 ML VIAL SQ ONE; -MORPHINE SULFATE 2 MG/ML SYRINGE IV PRN; -ONDANSETRON 4 MG/2 ML VIAL IVP ONE; -ceFAZolin IN SWFI 2 GM/20 ML SYRINGE IVP ONE; -metroNIDAZOLE-NS PMX 500 MG in SALINE 1 100ML.BAG IVPB ONE
[2018-04-15 10:07] VITALS: BP 153/72; PULSE 88; RESP 16; TEMP 97.6
== END | disposition home or self-care (01) ==
LOC: PROCWHC3 09:55
PROVIDERS: ATTEND Family Medicine
DX: M81.0 Age-related osteoporosis without current pathological fracture (principal)
CPT/HCPCS: 96372; J0897

== ENCOUNTER → 2018-10-21 | Outpatient (CLI) | payer MEDICARE, BC ==
[2018-10-21 10:29] VITALS: BP 124/62; PULSE 76; RESP 18; TEMP 97.6
== END ==
LOC: PROCWHC3 09:41
PROVIDERS: ATTEND Family Medicine
DX: M81.0 Age-related osteoporosis without current pathological fracture (principal)
CPT/HCPCS: 96372; J0897

== ENCOUNTER 2019-01-01 08:55 | Day surgery (SDC) | payer MEDICARE, BC ==
[2018-12-31 09:42] VITALS: BMI 20.1
--- NOTE | 2019-01-01 07:40 | P.GSHP ---
History of Present Illness H&P Date: 01/01/19 CHIEF COMPLAINT: Colon screen HISTORY OF PRESENT ILLNESS: The patient is a 78-year-old female who presents for colon screen. Lower endoscopy was offered for further evaluation and management. PAST MEDICAL HISTORY: Please see list. PAST SURGICAL HISTORY: Please see list. MEDICATIONS: Please see list. ALLERGIES: Please see list. SOCIAL HISTORY: No illicit drug use FAMILY HISTORY: No reports of Crohn disease or ulcerative colitis. REVIEW OF ORGAN SYSTEMS: CONSTITUTIONAL: No reports of fevers or chills. PHYSICAL EXAM: VITAL SIGNS: Stable GENERAL: Well-developed pleasant in no acute distress. HEENT: No scleral icterus. Extraocular movements grossly intact. Moist buccal mucosa. NECK: Supple without lymphadenopathy. CHEST: Unlabored respirations. Equal bilateral excursions. CARDIOVASCULAR: Regular rate and rhythm. Distal 2+ pulses. ABDOMEN: Soft, nontender, nondistended. MUSCULOSKELETAL: No clubbing, cyanosis, or edema. ASSESSMENT: 1. Colon screen. PLAN: 1. Recommend proceeding with a lower endoscopy Past Medical History Past Medical History: Cancer, COPD, Hypertension, Osteoarthritis (OA) Additional Past Medical History / Comment(s): currently has a pessori in bladder-bladder prolapse,mitral valve regurgitation,hx. colon cancer 2011-no chemo or radiation, osteoporosis History of Any Multi-Drug Resistant Organisms: None Reported Past Surgical History: Appendectomy, Bowel Resection, Cholecystectomy, Orthopedic Surgery, Tubal Ligation Additional Past Surgical History / Comment(s): cataract surg., D & C, ORIF left tib/fib, colonoscopy Past Anesthesia/Blood Transfusion Reactions: No Reported Reaction Smoking Status: Former smoker - Past Family History Sister(s) Family Medical History: Deep Vein Thrombosis (DVT) Medications and Allergies Home Medications Medication Instructions Recorded Confirmed Type amLODIPine [Norvasc] 5 mg PO QAM 10/10/16 12/31/18 History Calcium Carb/Vitamin D3/Vit K1 1 tab PO DAILY 10/15/17 12/31/18 History [Citracal Soft Chew] Cholecalciferol (Vitamin D3) 2,000 unit PO DAILY 10/15/17 12/31/18 History [Vitamin D3] Denosumab [Prolia] 60 mg SQ Q180D 10/15/17 12/31/18 History Allergies Allergy/AdvReac Type Severity Reaction Status Date / Time diazepam Allergy Unknown Verified 12/31/18 09:27 Iodinated Contrast- Oral and Allergy Rash/Hives Verified 12/31/18 09:27 IV Dye
[~2019-01-01 08:55] MED LIST changes: -DENOSUMAB 60 MG/ML 1 ML SYRINGE SQ ONE; +LACTATED RINGERS 1,000 ML IV SCH; +LIDOCAINE 1% 20 ML VIAL (10MG/ML) FOR IV START INTRADERMA PRN
[2019-01-01 09:34] VITALS: RESP 16; TEMP 97.4
[2019-01-01] MEDS ORDERED: PROPOFOL 10 MG/ML 20 ML VIAL IV ONE (10:06)
[2019-01-01] MEDS ORDERED: LIDOCAINE 1% INJ 10MG/ML (20 ML MDV) ONE (10:06)
--- NOTE | 2019-01-01 10:34 | P.PCN ---
Date of Procedure: 01/01/19 Description of Procedure: PREOPERATIVE DIAGNOSIS: Personal history of sigmoid colon cancer status post colon resection Personal history of colon cancer, right colon, status post partial colon resection POSTOPERATIVE DIAGNOSIS: Personal history of sigmoid colon cancer status post colon resection Personal history of colon cancer, right colon, status post partial colon resection Internal hemorrhoids, stage III External hemorrhoids, stage IV OPERATION: Colonoscopy to the ileocolic anastomosis SURGEON: Nadja Blankenship MD. ANESTHESIA: MAC. INDICATIONS: The patient is a 78-year-old female who presents for colonoscopy surveillance after having colon cancer at least twice. Last colon resection one year ago for right hemicolectomy. Benefits and risks were described and informed consent was obtained. DESCRIPTION OF PROCEDURE: The patient had undergone Gatorade, MiraLAX and Dulcolax prep. She had been brought into the operating room and laid in the left lateral decubitus position. After adequate intravenous sedation, the rectum was examined with 2% lidocaine jelly. Large external hemorrhoids were encountered. The rectal tone was within normal limits. No lesions were palpated in the rectal vault. An Olympus colonoscope was advanced until the ileocecal anastomosis clearly viewed. No recurrent tumors or polyps were found. The prep was excellent with clear visualization of the mucosal folds. The scope was removed with visualization of each mucosal fold. No scattered diverticulosis was encountered. No colonic polyps were found. No evidence of focal colitis was found. Retroflexion of the scope demonstrated grade 3 internal hemorrhoids without active bleeding or inflammation. The colon was desufflated. The patient had tolerated the procedure well. Withdrawal time was over 6 minutes. FINDINGS: Aronchick preparation quality scale 1 (1-5) Internal hemorrhoids, grade 3 External prolapsed hemorrhoids, grade 4 No arteriovenous malformations. No recurrent tumors or polyps were found. No adenomatous polyps. No scattered diverticulosis was encountered. No focal colitis. RECOMMENDATIONS: Lower endoscopy in 1 year2019 Plan - Discharge Summary Discharge Rx Participant: No New Discharge Prescriptions: No Action amLODIPine [Norvasc] 5 mg PO QAM Cholecalciferol (Vitamin D3) [Vitamin D3] 2,000 unit PO DAILY Calcium Carb/Vitamin D3/Vit K1 [Citracal Soft Chew] 1 tab PO DAILY Denosumab [Prolia] 60 mg SQ Q180D Discharge Medication List amLODIPine [Norvasc] 5 mg PO QAM 10/10/16 [History] Calcium Carb/Vitamin D3/Vit K1 [Citracal Soft Chew] 1 tab PO DAILY 10/15/17 [History] Cholecalciferol (Vitamin D3) [Vitamin D3] 2,000 unit PO DAILY 10/15/17 [History] Denosumab [Prolia] 60 mg SQ Q180D 10/15/17 [History] Follow up Appointment(s)/Referral(s): Nadja Blankenship MD [STAFF PHYSICIAN] - As Needed Patient Instructions/Handouts: Hemorrhoids (DC), *Surgery [facility] - (Anesthesia) Endoscopy Discharge Instructions Activity/Diet/Wound Care/Special Instructions: Repeat colonoscopy one year, December 2019 Discharge Disposition: HOME SELF-CARE
[2019-01-01 11:06] VITALS: BP 128/84; PULSE 75
== END 2019-01-01 11:19 | disposition home or self-care (01) ==
LOC: ORWHC2ENDO 08:55
PROVIDERS: ATTEND Surgery Plastic and Reconstructive Surgery
DX: Z12.11 Encounter for screening for malignant neoplasm of colon (principal); K64.4 Residual hemorrhoidal skin tags; Z85.038 Personal history of other malignant neoplasm of large intestine; K64.3 Fourth degree hemorrhoids; K64.2 Third degree hemorrhoids; I10 Essential (primary) hypertension; M19.90 Unspecified osteoarthritis, unspecified site; Z90.49 Acquired absence of other specified parts of digestive tract; Z98.49 Cataract extraction status, unspecified eye; Z87.891 Personal history of nicotine dependence; Z79.899 Other long term (current) drug therapy; Z88.8 Allergy status to other drugs, medicaments and biological substances; Z91.041 Radiographic dye allergy status
CPT/HCPCS: J2001; J2704; G0105; 45378

== ENCOUNTER → 2019-01-09 | Outpatient (CLI) | payer MEDICARE, BC ==
[2019-01-09 10:45] LABS: Anisocytosis Slight; Basophils % (A) 0 %; Eosinophils # (A) 0.1 k/uL (0-0.7); Eosinophils % (A) 2 %; HCT 40.9 % (34.0-46.0); HGB 12.9 gm/dL (11.4-16.0); Lymphocytes % (A) 25 %; MCH 25.9 pg (25.0-35.0); MCHC 31.5 g/dL (31.0-37.0); MCV 82.3 fL (80.0-100.0); Mean Platelet Volume 6.8; Monocytes # (A) 0.3 k/uL (0-1.0); Monocytes % (A) 8 %; Neutrophils # (A) 2.6 k/uL (1.3-7.7); Neutrophils % (A) 63 %; Platelet Count 195 k/uL (150-450); RBC 4.97 m/uL (3.80-5.40); RDW 16.2 % (11.5-15.5); WBC 4.2 k/uL (3.8-10.6)
[2019-01-09 16:44] LABS: ALT 21 U/L (8-44); AST 27 U/L (13-35); Albumin/Globulin Ratio 1.95 (1.60-3.17); Alkaline Phosphatase 50 U/L (41-126); Calcium 9.2 mg/dL (8.7-10.3); Carbon Dioxide 27.9 mmol/L (21.6-31.8); Chloride 110 mmol/L (96-109); Cholesterol 172 mg/dL (0-200); Globulin 2.1 g/dL (1.6-3.3); Glucose 82 mg/dL (70-110); Potassium 4.4 mmol/L (3.5-5.5); Sodium 143 mmol/L (135-145); Total Bilirubin 0.6 mg/dL (0.3-1.2); Total Protein 6.2 g/dL (6.2-8.2); Triglycerides <50.0 mg/dL (0.0-149.0); VLDL Calculation 9.98 mg/dL (5.00-40.00)
== END | disposition home or self-care (01) ==
LOC: LABWHC1 09:43
PROVIDERS: ATTEND Nurse Practitioner Adult Health
DX: Z00.01 Encounter for general adult medical examination with abnormal findings (principal)
CPT/HCPCS: 36415; 80053; 80061; 82306; 84439; 84443; 85025

== ENCOUNTER → 2019-02-12 | Outpatient (CLI) | payer MEDICARE, BC ==
--- NOTE | 2019-02-12 14:27 | MM ---
Reason for exam: screening (asymptomatic). Last mammogram was performed 1 year and 1 month ago. History: Patient is postmenopausal and has history of colon cancer at age 72. Family history of breast cancer in grandmother. Physical Findings: A clinical breast exam by your physician is recommended on an annual basis and results should be correlated with mammographic findings. MG 3D Screening Mammo W/Cad Bilateral CC and MLO view(s) were taken. Prior study comparison: January 07, 2018, bilateral MG 3d screening mammo w/cad. November 27, 2016, bilateral MG 3d screening mammo w/cad. There are scattered fibroglandular densities. Benign appearing bilateral calcifications. No significant changes when compared with prior studies. ASSESSMENT: Benign, BI-RAD 2 RECOMMENDATION: Routine screening mammogram of both breasts in 1 year.
== END | disposition home or self-care (01) ==
LOC: RADMAMWWP 10:47
PROVIDERS: ATTEND Obstetrics & Gynecology
DX: Z12.31 Encounter for screening mammogram for malignant neoplasm of breast (principal)
CPT/HCPCS: 77063; 77067

== ENCOUNTER → 2019-04-22 | Outpatient (CLI) | payer MEDICARE, BC ==
[~2019-04-22] MED LIST changes: +DENOSUMAB 60 MG/ML 1 ML SYRINGE SQ ONE; -LACTATED RINGERS 1,000 ML IV SCH; -LIDOCAINE 1% 20 ML VIAL (10MG/ML) FOR IV START INTRADERMA PRN
[2019-04-22 10:14] VITALS: BP 143/76; PULSE 86; RESP 16; TEMP 97.7
== END | disposition home or self-care (01) ==
LOC: PROCWHC3 09:44
PROVIDERS: ATTEND Family Medicine
DX: M81.0 Age-related osteoporosis without current pathological fracture (principal)
CPT/HCPCS: 96372; J0897

== ENCOUNTER → 2019-10-28 | Outpatient (CLI) | payer MEDICARE, BC ==
[2019-10-28 11:12] VITALS: BP 144/70; PULSE 77; RESP 16; TEMP 97.6
== END | disposition home or self-care (01) ==
LOC: PROCWHC3 10:48
PROVIDERS: ATTEND Family Medicine
DX: M81.0 Age-related osteoporosis without current pathological fracture (principal)
CPT/HCPCS: 96372

== ENCOUNTER → 2020-05-31 | Outpatient (CLI) | payer MEDICARE, BC ==
[~2020-05-31] MED LIST changes: +DENOSUMAB 60 MG/ML 1 ML SYRINGE SQ NR; -DENOSUMAB 60 MG/ML 1 ML SYRINGE SQ ONE
[2020-05-31 09:45] VITALS: BP 160/80; PULSE 85; RESP 16; TEMP 97.1
== END | disposition home or self-care (01) ==
LOC: PROCWHC3 09:36
PROVIDERS: ATTEND Family Medicine
DX: M81.0 Age-related osteoporosis without current pathological fracture (principal)

== ENCOUNTER → 2020-06-29 | Outpatient (CLI) | payer MEDICARE, BC ==
--- NOTE | 2020-06-30 12:28 | MM ---
Reason for exam: screening (asymptomatic). Last mammogram was performed 1 year and 4 months ago. History: Patient is postmenopausal and has history of colon cancer at age 72. Family history of breast cancer in grandmother. Physical Findings: A clinical breast exam by your physician is recommended on an annual basis and results should be correlated with mammographic findings. MG 3D Screening Mammo W/Cad Bilateral CC and MLO view(s) were taken. Prior study comparison: February 12, 2019, bilateral MG 3d screening mammo w/cad. January 07, 2018, bilateral MG 3d screening mammo w/cad. The breast tissue is heterogeneously dense. This may lower the sensitivity of mammography. There are benign appearing round vascular calcifications bilaterally. There is no discrete abnormality. ASSESSMENT: Benign, BI-RAD 2 RECOMMENDATION: Routine screening mammogram of both breasts in 1 year.
== END | disposition home or self-care (01) ==
LOC: RADMAMWWP 13:17
PROVIDERS: ATTEND Family Medicine
DX: Z12.31 Encounter for screening mammogram for malignant neoplasm of breast (principal)
CPT/HCPCS: 77063; 77067

== ENCOUNTER 2020-07-15 06:39 | Observation (INO) | payer MEDICARE, BC ==
[2020-07-15] MEDS ORDERED: ASPIRIN 81 MG PO STA (06:50)
[2020-07-15 07:32] LABS: Basophils % (A) 1 %; Eosinophils % (A) 0 %; HCT 39.3 % (34.0-46.0); HGB 13.6 gm/dL (11.4-16.0); Lymphocytes # (A) 0.4 k/uL (1.0-4.8); Lymphocytes % (A) 19 %; MCH 29.1 pg (25.0-35.0); MCHC 34.5 g/dL (31.0-37.0); MCV 84.2 fL (80.0-100.0); Mean Platelet Volume 6.9; Monocytes # (A) 0.2 k/uL (0-1.0); Monocytes % (A) 9 %; Neutrophils # (A) 1.7 k/uL (1.3-7.7); Neutrophils % (A) 70 %; Platelet Count 121 k/uL (150-450); RBC 4.66 m/uL (3.80-5.40); RDW 13.4 % (11.5-15.5); WBC 2.4 k/uL (3.8-10.6)
--- NOTE | 2020-07-15 07:34 | ED ---
Recheck HPI - General Source: patient, family Mode of arrival: ambulatory <Crystal Portillo - Last Filed: 07/15/20 10:33> <TrungSelina de leon Wally - Last Filed: 07/17/20 13:55> - General Chief Complaint: Recheck/Abnormal Lab/Rx Stated Complaint: sent by dr harrison-heart monitor Time Seen by Provider: 07/15/20 06:51 - History of Present Illness Initial Comments: 80-year-old female with history of mitral valve prolapse presenting today for chief complaint of heart abnormality. Pt states that she was called this morning by the heart monitor company stating there was an irregular heart beat. Patietn states she was not told she was having a heart attack, denied current symptoms but does endorse increasing SOB with exertion x 3 days. Patient denies leg swelling, chest pressure/pain, pain with deep inspiration or hemoptysis. Patient denies cough, URI symptoms. Pt states that she is currently being treated for a UTI with nitrofuratin. Patient denies history DVT/PE. Denies anticoagulation use. Denies calf pain. Patient states last week she had an episode of nausea, "felt like gas bubble under chest", and belched and felt better. Denies multiple episodes or this reoccurring. (Crystal Portillo) - Related Data Home Medications Medication Instructions Recorded Confirmed amLODIPine [Norvasc] 5 mg PO DAILY 10/10/16 07/15/20 Calcium Carb/Vitamin D3/Vit K1 1 tab PO DAILY 10/15/17 07/15/20 [Citracal-D3 500 mg Soft Chew] Cholecalciferol (Vitamin D3) 2,000 unit PO DAILY 10/15/17 07/15/20 [Vitamin D3] Denosumab [Prolia] 60 mg SQ Q180D 10/15/17 07/15/20 Nitrofurantoin Monohyd/M-Cryst 100 mg PO BID 07/15/20 07/15/20 [Macrobid] Previous Rx's Medication Instructions Recorded Famotidine [Pepcid] 20 mg PO BID #60 tablet 07/15/20 Metoprolol Tartrate [Lopressor] 25 mg PO BID #60 tab 07/15/20 Zinc 50 mg PO DAILY #30 tablet 07/15/20 Allergies Allergy/AdvReac Type Severity Reaction Status Date / Time Iodinated Contrast Media Allergy Rash/Hives Verified 07/15/20 09:04 [Iodinated Contrast- Oral and IV Dye] diazepam AdvReac Confusion Verified 07/15/20 09:04 Review of Systems ROS Other: All systems not noted in ROS Statement are negative. <Crystal Portillo - Last Filed: 07/15/20 10:33> ROS Other: All systems not noted in ROS Statement are negative. <Selina Campa Wally - Last Filed: 07/17/20 13:55> ROS Statement: Those systems with pertinent positive or pertinent negative responses have been documented in the HPI. Past Medical History Past Medical History: Cancer, COPD, Hypertension, Osteoarthritis (OA) Additional Past Medical History / Comment(s): hx. colon cancer 2012-new reoccurence, osteoporosis, recent stress test, UTI History of Any Multi-Drug Resistant Organisms: None Reported Past Surgical History: Bowel Resection, Orthopedic Surgery, Tubal Ligation Additional Past Surgical History / Comment(s): cataract surg., D & C, ORIF left tib/fib, colonoscopy Past Anesthesia/Blood Transfusion Reactions: No Reported Reaction Past Psychological History: No Psychological Hx Reported Smoking Status: Former smoker Past Alcohol Use History: None Reported Past Drug Use History: None Reported - Past Family History Sister(s) Family Medical History: Congestive Heart Failure (CHF), Deep Vein Thrombosis (DVT) <Crystal Portillo - Last Filed: 07/15/20 10:33> General Exam <Crystal Portillo - Last Filed: 07/15/20 10:33> - General Exam Comments Initial Comments: General: The patient is awake and alert, in no distress Eye: Pupils are equal, round and reactive to light, extra-ocular movements are intact. No nystagmus. There is normal conjunctiva bilaterally. No signs of icterus. Ears, nose, mouth and throat: There are moist mucous membranes and no oral lesions. Neck: The neck is supple, there is no tenderness or JVD. Cardiovascular: There is a increased rate and regular appearing rhythm. No murmur, rub or gallop is appreciated. Respiratory: Lungs are clear to auscultation, respirations are non-labored, breath sounds are equal. No wheezes, stridor, rales, or rhonchi. Gastrointestinal: Soft, non-distended, non-tender abdomen without masses or organomegaly noted. There is no rebound or guarding present Musculoskeletal: Normal ROM, no tenderness. Strength 5/5. Sensation intact. Radial pulses equal bilaterally 2+. Neurological: A&O x 3. CN II-XII intact grossly, There are no obvious motor or sensory deficits. Coordination appears grossly intact. Speech is normal. Skin: Skin is warm and dry and no rashes or lesions are noted. Psychiatric: Cooperative, appropriate mood & affect, normal judgment. (Crystal Portillo) Course Vital Signs 07/15/20 07/15/20 07/15/20 06:39 08:46 09:46 Temperature 98 F Pulse Rate 99 71 74 Respiratory 20 18 18 Rate Blood Pressure 143/73 125/69 127/74 O2 Sat by Pulse 97 95 95 Oximetry 07/15/20 07/15/20 07/15/20 10:00 11:00 13:20 Temperature 97.7 F Pulse Rate 74 77 84 Respiratory 18 18 18 Rate Blood Pressure 121/84 132/69 O2 Sat by Pulse 96 96 96 Oximetry 07/15/20 07/15/20 14:00 15:48 Temperature 97.7 F 97.7 F Pulse Rate 62 70 Respiratory 18 17 Rate Blood Pressure 113/61 139/80 O2 Sat by Pulse 94 L 97 Oximetry Medical Decision Making - Lab Data Result diagrams: 07/15/20 07:20 07/15/20 07:20 <Crystal Portillo - Last Filed: 07/15/20 10:33> - Lab Data Result diagrams: 07/15/20 07:20 07/15/20 07:20 <Selina Campa - Last Filed: 07/17/20 13:55> - Medical Decision Making 80 presnting for holter abnormality. EKG concerning for possible aflutter, P waves are not clear. rate ~115 in room. patient troponin (-). D-dimer elevated. patient CTA (-) for PE (+) for nodule discussed ddx including malignancy possibility with patient. patietn agreeable to admission for cardiology consultation, telemetry for cardiac monitoring. Pt did recently have UTI and is currently undergoing treatment, rocephin initiated in ER. Dr. Campa agreeable to care plan and admission. (Crystal Portillo) I was available for consultation in the emergency department. The history and physical exam were done by the midlevel provider. I was consulted for this patients care. I reviewed the case with the midlevel provider and based on their presentation of the patient, I agree with the assessment, medical decision making and plan of care as documented. Chart was dictated using [employer] dictation software. Attempts were made to correct any dictation errors however some typographical errors may persist. Patient was seen during a national state of emergency due to the Covid-19 pandemic. (Selina Campa) - Lab Data Lab Results 07/15/20 07/15/20 07/15/20 Range/Units 07:20 07:20 07:20 WBC 2.4 L (3.8-10.6) k/uL RBC 4.66 (3.80-5.40) m/uL Hgb 13.6 (11.4-16.0) gm/dL Hct 39.3 (34.0-46.0) % MCV 84.2 (80.0-100.0) fL MCH 29.1 (25.0-35.0) pg MCHC 34.5 (31.0-37.0) g/dL RDW 13.4 (11.5-15.5) % Plt Count 121 L (150-450) k/uL MPV 6.9 Neutrophils % 70 % Lymphocytes % 19 % Monocytes % 9 % Eosinophils % 0 % Basophils % 1 % Neutrophils # 1.7 (1.3-7.7) k/uL Lymphocytes # 0.4 L (1.0-4.8) k/uL Monocytes # 0.2 (0-1.0) k/uL Eosinophils # 0.0 (0-0.7) k/uL Basophils # 0.0 (0-0.2) k/uL PT 10.0 (9.0-12.0) sec INR 1.0 (<1.2) APTT 24.2 (22.0-30.0) sec D-Dimer 1.50 H (<0.60) mg/L FEU Sodium 137 (137-145) mmol/L Potassium 3.5 (3.5-5.1) mmol/L Chloride 106 (98-107) mmol/L Carbon Dioxide 23 (22-30) mmol/L Anion Gap 8 mmol/L BUN 16 (7-17) mg/dL Creatinine 0.65 (0.52-1.04) mg/dL Est GFR (CKD-EPI)AfAm >90 (>60 ml/min/1.73 sqM) Est GFR (CKD-EPI)NonAf 83 (>60 ml/min/1.73 sqM) Glucose 96 (74-99) mg/dL Calcium 8.5 (8.4-10.2) mg/dL Magnesium 1.8 (1.6-2.3) mg/dL Total Bilirubin 0.8 (0.2-1.3) mg/dL AST 32 (14-36) U/L ALT 19 (4-34) U/L Alkaline Phosphatase 52 (38-126) U/L Troponin I (0.000-0.034) ng/mL NT-Pro-B Natriuret Pep pg/mL Total Protein 6.6 (6.3-8.2) g/dL Albumin 3.7 (3.5-5.0) g/dL TSH (0.465-4.680) mIU/L Urine Color Urine Appearance (Clear) Urine pH (5.0-8.0) Ur Specific [place] (1.001-1.035) Urine Protein (Negative) Urine Glucose (UA) (Negative) Urine Ketones (Negative) Urine Blood (Negative) Urine Nitrite (Negative) Urine Bilirubin (Negative) Urine Urobilinogen (<2.0) mg/dL Ur Leukocyte Esterase (Negative) Urine RBC (0-5) /hpf Urine WBC (0-5) /hpf Ur Squamous Epith Cells (0-4) /hpf Urine Bacteria (None) /hpf Hyaline Casts (0-2) /lpf Urine Mucus (None) /hpf 07/15/20 07/15/20 07/15/20 Range/Units 07:20 07:20 07:20 WBC (3.8-10.6) k/uL RBC (3.80-5.40) m/uL Hgb (11.4-16.0) gm/dL Hct (34.0-46.0) % MCV (80.0-100.0) fL MCH (25.0-35.0) pg MCHC (31.0-37.0) g/dL RDW (11.5-15.5) % Plt Count (150-450) k/uL MPV Neutrophils % % Lymphocytes % % Monocytes % % Eosinophils % % Basophils % % Neutrophils # (1.3-7.7) k/uL Lymphocytes # (1.0-4.8) k/uL Monocytes # (0-1.0) k/uL Eosinophils # (0-0.7) k/uL Basophils # (0-0.2) k/uL PT (9.0-12.0) sec INR (<1.2) APTT (22.0-30.0) sec D-Dimer (<0.60) mg/L FEU Sodium (137-145) mmol/L Potassium (3.5-5.1) mmol/L Chloride (98-107) mmol/L Carbon Dioxide (22-30) mmol/L Anion Gap mmol/L BUN (7-17) mg/dL Creatinine (0.52-1.04) mg/dL Est GFR (CKD-EPI)AfAm (>60 ml/min/1.73 sqM) Est GFR (CKD-EPI)NonAf (>60 ml/min/1.73 sqM) Glucose (74-99) mg/dL Calcium (8.4-10.2) mg/dL Magnesium (1.6-2.3) mg/dL Total Bilirubin (0.2-1.3) mg/dL AST (14-36) U/L ALT (4-34) U/L Alkaline Phosphatase (38-126) U/L Troponin I <0.012 (0.000-0.034) ng/mL NT-Pro-B Natriuret Pep 534 pg/mL Total Protein (6.3-8.2) g/dL Albumin (3.5-5.0) g/dL TSH 1.140 (0.465-4.680) mIU/L Urine Color Urine Appearance (Clear) Urine pH (5.0-8.0) Ur Specific [place] (1.001-1.035) Urine Protein (Negative) Urine Glucose (UA) (Negative) Urine Ketones (Negative) Urine Blood (Negative) Urine Nitrite (Negative) Urine Bilirubin (Negative) Urine Urobilinogen (<2.0) mg/dL Ur Leukocyte Esterase (Negative) Urine RBC (0-5) /hpf Urine WBC (0-5) /hpf Ur Squamous Epith Cells (0-4) /hpf Urine Bacteria (None) /hpf Hyaline Casts (0-2) /lpf Urine Mucus (None) /hpf 07/15/20 Range/Units 07:49 WBC (3.8-10.6) k/uL RBC (3.80-5.40) m/uL Hgb (11.4-16.0) gm/dL Hct (34.0-46.0) % MCV (80.0-100.0) fL MCH (25.0-35.0) pg MCHC (31.0-37.0) g/dL RDW (11.5-15.5) % Plt Count (150-450) k/uL MPV Neutrophils % % Lymphocytes % % Monocytes % % Eosinophils % % Basophils % % Neutrophils # (1.3-7.7) k/uL Lymphocytes # (1.0-4.8) k/uL Monocytes # (0-1.0) k/uL Eosinophils # (0-0.7) k/uL Basophils # (0-0.2) k/uL PT (9.0-12.0) sec INR (<1.2) APTT (22.0-30.0) sec D-Dimer (<0.60) mg/L FEU Sodium (137-145) mmol/L Potassium (3.5-5.1) mmol/L Chloride (98-107) mmol/L Carbon Dioxide (22-30) mmol/L Anion Gap mmol/L BUN (7-17) mg/dL Creatinine (0.52-1.04) mg/dL Est GFR (CKD-EPI)AfAm (>60 ml/min/1.73 sqM) Est GFR (CKD-EPI)NonAf (>60 ml/min/1.73 sqM) Glucose (74-99) mg/dL Calcium (8.4-10.2) mg/dL Magnesium (1.6-2.3) mg/dL Total Bilirubin (0.2-1.3) mg/dL AST (14-36) U/L ALT (4-34) U/L Alkaline Phosphatase (38-126) U/L Troponin I (0.000-0.034) ng/mL NT-Pro-B Natriuret Pep pg/mL Total Protein (6.3-8.2) g/dL Albumin (3.5-5.0) g/dL TSH (0.465-4.680) mIU/L Urine Color Yellow Urine Appearance Clear (Clear) Urine pH 6.0 (5.0-8.0) Ur Specific [place] 1.019 (1.001-1.035) Urine Protein Trace H (Negative) Urine Glucose (UA) Negative (Negative) Urine Ketones 1+ H (Negative) Urine Blood Trace H (Negative) Urine Nitrite Negative (Negative) Urine Bilirubin Negative (Negative) Urine Urobilinogen <2.0 (<2.0) mg/dL Ur Leukocyte Esterase Large H (Negative) Urine RBC 2 (0-5) /hpf Urine WBC 3 (0-5) /hpf Ur Squamous Epith Cells 5 H (0-4) /hpf Urine Bacteria Rare H (None) /hpf Hyaline Casts 1 (0-2) /lpf Urine Mucus Rare H (None) /hpf - EKG Data EKG Comments: Ventricular rate 119 bpm, OK interval 176 pulse seconds, QRS urgent 86 ms, QT/QTC 340/478. P waves not pronounced, but the rate appears regular. Sinus tachycardia vs atrial flutter, no history of atrial fibrillation. (Crystal Portillo) Disposition Is patient prescribed a controlled substance at d/c from ED?: No Time of Disposition: 08:46 Decision to Admit Reason: Admit from EC Decision Date: 07/15/20 Decision Time: 08:46 <Crystal Portillo - Last Filed: 07/15/20 10:33> <Selina Campa - Last Filed: 07/17/20 13:55> Clinical Impression: Atrial flutter, Dyspnea on exertion, Lung nodule Disposition: ADMITTED IP TO THIS HOSP Condition: Stable
[2020-07-15 07:43] LABS: ALT 19 U/L (4-34); AST 32 U/L (14-36); African American GFR (CKD) >90 (>60 ml/min/1.73 sqM); Albumin 3.7 g/dL (3.5-5.0); Alkaline Phosphatase 52 U/L (38-126); Anion Gap 8 mmol/L; Blood Urea Nitrogen 16 mg/dL (7-17); Calcium 8.5 mg/dL (8.4-10.2); Carbon Dioxide 23 mmol/L (22-30); Chloride 106 mmol/L (98-107); Glucose 96 mg/dL (74-99); Magnesium 1.8 mg/dL (1.6-2.3); Non-African American GFR(CKD) 83 (>60 ml/min/1.73 sqM); Potassium 3.5 mmol/L (3.5-5.1); Sodium 137 mmol/L (137-145); Total Bilirubin 0.8 mg/dL (0.2-1.3); Total Protein 6.6 g/dL (6.3-8.2)
[2020-07-15 07:48] LABS: Partial Thromboplastin Time 24.2 sec (22.0-30.0)
[2020-07-15 07:58] LABS: D-Dimer 1.5 mg/L FEU (<0.60)
[2020-07-15] MEDS ORDERED: diphenhydrAMINE 50 MG/ML 1 ML VIAL IVP STA (08:14)
[2020-07-15] MEDS ORDERED: FAMOTIDINE 20 MG/2 ML VIAL IV STA (08:14)
[2020-07-15] MEDS ORDERED: methylPREDNISolone SOD SUCCI 125 MG/2 ML VIAL IV STA (08:15)
--- NOTE | 2020-07-15 08:15 | XR ---
EXAMINATION TYPE: XR chest 2V DATE OF EXAM: 07/15/2020 COMPARISON: Prior chest x-ray 11/19/2017 HISTORY: Chest pain TECHNIQUE: Frontal and lateral views of the chest are obtained. FINDINGS: There is no focal air space opacity, pleural effusion, or pneumothorax seen. Nodular densi ty in the right lower chest shows a stable appearance. Some probable subsegmental basilar atelectatic changes are noted. The cardiac silhouette size is within normal limits. The aorta is dense. Suspec t eventration of the posterior aspect of the left hemidiaphragm. The osseous structures are stable co mpression deformity at the midthoracic spine is again noted. IMPRESSION: No acute cardiopulmonary process. Some probable minimal basilar atelectatic changes or s carring are noted.
[2020-07-15 08:20] LABS: Appearance,Urine Clear (Clear); Bacteria,Urine Rare /hpf; Bilirubin,Urine Negative (Negative); Blood,Urine Trace (Negative); Color,Urine Yellow; Glucose,Urine (UA) Negative (Negative); Hyaline Casts,Urine 1 /lpf (0-2); Ketones,Urine 1+ (Negative); Leukocyte Esterase,Urine Large (Negative); Mucus,Urine Rare /hpf; Nitrite,Urine Negative (Negative); Protein,Urine Trace (Negative); RBC,Urine 2 /hpf (0-5); Specific Gravity,Urine 1.019 (1.001-1.035); Squamous Epithelial Cell,Urine 5 /hpf (0-4); Urobilinogen,Urine <2.0 mg/dL (<2.0); WBC,Urine 3 /hpf (0-5)
[2020-07-15] MEDS ORDERED: NALOXONE 0.4 MG/ML 1 ML VIAL IV PRN (08:32)
--- NOTE | 2020-07-15 09:10 | CT ---
CT CHEST FOR PULMONARY EMBOLISM. EXAMINATION TYPE: CT chest angio for PE DATE OF EXAM: 07/15/2020 INDICATION: abnormal heart monitor readings, tachycardia CT DLP: 172.7 mGycm, Automated exposure control for dose reduction was used. CONTRAST: Patient injected with 100 mL of Isovue 370. COMPARISON: None TECHNIQUE: CT of the chest is performed on a spiral scan at 2 mm thick sections. Study is performed with intravenous contrast timed for evaluation for pulmonary embolism. This will limit additional po rtions of the evaluation. 3-D MIP images reconstructed by the technologist are reviewed on the compu ter in the coronal and sagittal planes. FINDINGS: No persistent filling defects are evident to suggest an acute pulmonary embolism. No mediastinal or hilar adenopathy enlarged by CT criteria is evident. The ascending aorta diameter at the level of the main pulmonary artery is 2.9 cm. The main pulmonary artery diameter at the bifur cation is 2.3 cm. Bilateral posterior lower lobe pulmonary fibrosis is present. Emphysematous changes are evident. Ther e is a nodule along the pleural margin of the anterior lateral right middle lobe measuring 1.0 cm in width and 0.5 cm in depth. Series 406 image 79. A right middle lobe basilar nodule is present with tr ansverse dimension of 0.8 cm. Series 406 image 96. Thyroid is enlarged and heterogenous. Consider additional workup with ultrasound. Attention left lobe thyroid. 1.8 cm hypodense mass may be present. Limited CT section through the upper abdomen are unremarkable. IMPRESSIONS: 1. No acute pulmonary embolism. 2. Dependent lower lobe pulmonary fibrosis. 3. Right middle lobe nodule. A pleural base thickening is also present adjacent to the right middle l obe. Additional workup is recommended.
[2020-07-15] MEDS ORDERED: amLODIPine 5 MG TAB PO SCH (11:45)
[2020-07-15] MEDS ORDERED: NITROFURANTOIN MONOHYD/M-CRYST 100 MG CAP PO SCH (11:45)
[2020-07-15] MEDS ORDERED: METOPROLOL TARTRATE 25 MG TAB PO SCH (12:00)
--- NOTE | 2020-07-15 13:19 | P.CRDCN ---
History of Present Illness History of present illness: HISTORY OF PRESENTING ILLNESS This is a pleasant 80-year-old occasion female past medical history significant for history of colon cancer in 2012, hypertension, COPD and former nicotine depe ndegabriele. 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 We have been asked to see in consultation for possible atrial flutter. She is seen and interviewed from the doorway to limit exposure to Covid 19. She has a family member at the bedside with her. She states that she presented to the hospital because she received a call from the outpatient monitoring company advising her to come to the emergency department. Her primary care physician ordered an outpatient monitor secondary to symptoms of intermittent dizziness. According to the patient she has episodes of dizziness with position changes. Telemetry strips were obtained from her [facility] doctor and reviewed. Yesterday at 5:00 she had a short run of supraventricular tachycardia lasting less than 2 seconds. Last evening at 11:30 she had a 6 beat run of wide complex nonsustained ventricular tachycardia. Other strips reviewed reveal frequent PVCs. According to the patient these were not times when she felt any dizziness or palpitations. DIAGNOSTICS EKG reveals sinus tachycardia heart rate 119, first-degree AV block and nonspecific ST abnormalities. Chest xray negative for an acute cardiopulmonary process. CTA of the chest is negative for pulmonary embolism with evidence of dependent lower lobe pulmonary fibrosis and a right middle lobe nodule. Laboratory reviewed, WBC 2.4, hemoglobin 13.6, platelets 121, d-dimer 1.5, sodium 137, potassium 3.5, creatinine 0.65, magnesium 1.8, cardiac enzymes negative 1, NT proBNP 534, TSH 1.14. Current cardiac medications include amlodipine 5 mg daily. REVIEW OF SYSTEMS At the time of my exam: CONSTITUTIONAL: Denies fever or chills. CARDIOVASCULAR: Denies chest pain, shortness of breath, orthopnea, PND or palpitations. RESPIRATORY: Denies cough. GASTROINTESTINAL: Denies abdominal pain, diarrhea, constipation, nausea or vomiting. MUSCULOSKELETAL: Denies myalgias. NEUROLOGIC: Denies numbness, tingling or weakness. ENDOCRINE: Denies fatigue, weight change, polydipsia or polyurina. GENITOURINARY: Denies burning, hematuria or urgency with micturation. HEMATOLOGIC: Denies history of anemia or bleeding. PHYSICAL EXAMINATION NO PHYSICAL EXAM WAS PERFORMED TO PRESERVE PPE AND LIMIT EXPOSURE Blood pressure 121/84 heart rate 77 afebrile and maintaining oxygen saturation on room air. CONSTITUTIONAL: No apparent distress. HEENT: Head is normocephalic. Pupils are equal, round. Sclerae anicteric. Mucous membranes of the mouth are moist. No JVD. NEUROLOGIC EXAMINATION: Patient is awake, alert and oriented x3. ASSESSMENT Dizziness and palpitations Covid 19 Hypertension COPD Former nicotine dependence PLAN Telemetry tracings were reviewed and reveal 1 run of nonsustained ventricular tachycardia and frequent PVCs. There is no atrial fibrillation/flutter noted on telemetry tracings, EKG or outpatient monitors. Obtain 2-D echocardiogram and Doppler study to assess cardiac structure and function. Initiate Lopressor 25 mg twice a day. Ongoing medical management and evaluation of underling COVID19 infection. No further cardiac work-up at this time. Follow up in the office with Dr. Peacock when active infection has resolved. Pt can also do a telephone visit in 2 weeks. Thank you kindly for this consultation. Nurse Practitioner note has been reviewed, I agree with a documented findings and plan of care. Patient was seen and examined. Past Medical History Past Medical History: Cancer, COPD, Hypertension, Osteoarthritis (OA) Additional Past Medical History / Comment(s): hx. colon cancer 2012-new reoccurence, osteoporosis, recent stress test, UTI History of Any Multi-Drug Resistant Organisms: None Reported Past Surgical History: Bowel Resection, Orthopedic Surgery, Tubal Ligation Additional Past Surgical History / Comment(s): cataract surg., D & C, ORIF left tib/fib, colonoscopy Past Anesthesia/Blood Transfusion Reactions: No Reported Reaction Past Psychological History: No Psychological Hx Reported Smoking Status: Former smoker Past Alcohol Use History: None Reported Past Drug Use History: None Reported - Past Family History Sister(s) Family Medical History: Congestive Heart Failure (CHF), Deep Vein Thrombosis (DVT) Medications and Allergies Home Medications Medication Instructions Recorded Confirmed Type amLODIPine [Norvasc] 5 mg PO DAILY 10/10/16 07/15/20 History Calcium Carb/Vitamin D3/Vit K1 1 tab PO DAILY 10/15/17 07/15/20 History [Citracal-D3 500 mg Soft Chew] Cholecalciferol (Vitamin D3) 2,000 unit PO DAILY 10/15/17 07/15/20 History [Vitamin D3] Denosumab [Prolia] 60 mg SQ Q180D 10/15/17 07/15/20 History Nitrofurantoin Monohyd/M-Cryst 100 mg PO BID 07/15/20 07/15/20 History [Macrobid] Allergies Allergy/AdvReac Type Severity Reaction Status Date / Time Iodinated Contrast Media Allergy Rash/Hives Verified 07/15/20 09:04 [Iodinated Contrast- Oral and IV Dye] diazepam AdvReac Confusion Verified 07/15/20 09:04 Physical Exam Vitals: Vital Signs Temp Pulse Resp BP Pulse Ox 07/15/20 11:00 77 18 121/84 96 07/15/20 10:00 74 18 96 07/15/20 09:46 74 18 127/74 95 07/15/20 08:46 71 18 125/69 95 07/15/20 06:39 98 F 99 20 143/73 97 Intake and Output 07/14/20 07/15/20 07/15/20 22:59 06:59 14:59 Other: Weight 50.802 kg Results 07/15/20 07:20 07/15/20 07:20 Cardiac Enzymes 07/15/20 07/15/20 Range/Units 07:20 07:20 AST 32 (14-36) U/L Troponin I <0.012 (0.000-0.034) ng/mL Coagulation 07/15/20 Range/Units 07:20 PT 10.0 (9.0-12.0) sec APTT 24.2 (22.0-30.0) sec CBC 07/15/20 Range/Units 07:20 WBC 2.4 L (3.8-10.6) k/uL RBC 4.66 (3.80-5.40) m/uL Hgb 13.6 (11.4-16.0) gm/dL Hct 39.3 (34.0-46.0) % Plt Count 121 L (150-450) k/uL Comprehensive Metabolic Panel 07/15/20 Range/Units 07:20 Sodium 137 (137-145) mmol/L Potassium 3.5 (3.5-5.1) mmol/L Chloride 106 (98-107) mmol/L Carbon Dioxide 23 (22-30) mmol/L BUN 16 (7-17) mg/dL Creatinine 0.65 (0.52-1.04) mg/dL Glucose 96 (74-99) mg/dL Calcium 8.5 (8.4-10.2) mg/dL AST 32 (14-36) U/L ALT 19 (4-34) U/L Alkaline Phosphatase 52 (38-126) U/L Total Protein 6.6 (6.3-8.2) g/dL Albumin 3.7 (3.5-5.0) g/dL Current Medications Generic Name Dose Route Start Last Admin Trade Name Freq PRN Reason Stop Dose Admin Amlodipine Besylate 5 mg 07/15/20 11:45 Amlodipine 5 Mg Tab PO DAILY ANDREINA Ceftriaxone Sodium 1 gm/ 50 mls @ 100 mls/hr 07/15/20 09:00 Sodium Chloride IVPB DAILY ANDREINA Naloxone HCl 0.2 mg 07/15/20 08:32 Naloxone 0.4 Mg/Ml 1 Ml Vial IV Q2M PRN Opioid Reversal Nitrofurantoin Macrocrystals 100 mg 07/15/20 11:45 Nitrofurantoin Monohyd/M-Cryst 100 Mg Cap PO BID ANDREINA Intake and Output 07/14/20 07/15/20 07/15/20 22:59 06:59 14:59 Other: Weight 50.802 kg 07/15/20 07:20 07/15/20 07:20
[2020-07-15 13:24] VITALS: TEMP 97.7
[2020-07-15 15:49] VITALS: BP 139/80; PULSE 70; RESP 17
--- NOTE | 2020-07-15 23:34 | P.HPIM ---
History of Present Illness H&P Date: 07/15/20 Chief Complaint: Abnormal remote telemetry History of presenting complaint: This is a pleasant 80-year-old patient, follows a Dr. Tomas Vallejo. Chronic stable medical conditions include COPD, hypertension, osteoarthritis, colon cancer or osteoporosis. Patient was called us morning by heart monitor company stating that was irregular heartbeat and told to come in. Patient had some slight shortness of breath is not different than her baseline. No cough. No fever no chills. She was being treated for a UTI with nitrofurantoin. Admitted for the same. Cartilage was consulted. Review of systems: GEN.: No change in smell or taste. No fever no chills EYES: None HEENT: None NECK: None RESPIRATORY: Some shortness of breath CARDIOVASCULAR: None GASTROINTESTINAL: None GENITOURINARY: None MUSCULOSKELETAL: Joint pains LYMPHATICS: None HEMATOLOGICAL: None PSYCHIATRY: None NEUROLOGICAL: None Past medical history to include: COPD, hypertension, osteoarthritis, colon cancer, osteoporosis, recent UTI Social history: Patient smoked a pack for 30 years stopped about 20 years ago. No alcohol. Lives alone. Physical examination: VITAL SIGNS: 98, 99, 20, 143/73, 97% room air GENERAL: BMI 17.5, sitting up in bed, comfortable. EYES: Pupils equal. Conjunctiva normal. HEENT: External appearance of nose and ears normal, oral cavity grossly normal. NECK: JVD not raised; masses not palpable. HEART: First and second heart sounds are normal; no edema. LUNGS: Respiratory rate increased; decreased breath sounds. ABDOMEN: Soft, nontender, liver spleen not palpable, no masses palpable. PSYCH: Alert and oriented x3; mood and affect normal MUSCULAR skeletal: Evidence of OA. NEUROLOGICAL: Cranial nerves grossly intact; no facial asymmetry, power and sensation grossly intact. LYMPHATICS: No lymph nodes palpable in the axilla and neck INVESTIGATIONS, reviewed in the clinical context: White count 2.4 hemoglobin 13.6 lymphocytes 0.4 d-dimer 1.5 potassium 3.5 creatinine 0.65 COVID 19 PCR detected UA positive EKG tracing personally reviewed by me-sinus tachycardia Computed tomography scan of the chest-negative for PE. Dependent lower lobe pulmonary fibrosis. Right middle lobe nodule. Chest x-ray film personally reviewed by me-possibly chronic changes Assessment: -Sinus tachycardia asymptomatic -COVID 19 positive predominantly asymptomatic. Patient has baseline COPD symptoms -COPD in an ex-smoker -Primary osteoarthritis -Essential hypertension -Asymptomatic bacteriuria Plan: Cartilage was consulted. Home medications resumed. Patient's put on telemetry. No additional treatment for the COVID 19. Precautions for the same. Past Medical History Past Medical History: Cancer, COPD, Hypertension, Osteoarthritis (OA) Additional Past Medical History / Comment(s): hx. colon cancer 2011-new reoccurence, osteoporosis, recent stress test, UTI History of Any Multi-Drug Resistant Organisms: None Reported Past Surgical History: Bowel Resection, Orthopedic Surgery, Tubal Ligation Additional Past Surgical History / Comment(s): cataract surg., D & C, ORIF left tib/fib, colonoscopy Past Anesthesia/Blood Transfusion Reactions: No Reported Reaction Past Psychological History: No Psychological Hx Reported Smoking Status: Former smoker Past Alcohol Use History: None Reported Past Drug Use History: None Reported - Past Family History Sister(s) Family Medical History: Congestive Heart Failure (CHF), Deep Vein Thrombosis (DV T) Medications and Allergies Home Medications Medication Instructions Recorded Confirmed Type amLODIPine [Norvasc] 5 mg PO DAILY 10/10/16 07/15/20 History Calcium Carb/Vitamin D3/Vit K1 1 tab PO DAILY 10/15/17 07/15/20 History [Citracal-D3 500 mg Soft Chew] Cholecalciferol (Vitamin D3) 2,000 unit PO DAILY 10/15/17 07/15/20 History [Vitamin D3] Denosumab [Prolia] 60 mg SQ Q180D 10/15/17 07/15/20 History Famotidine [Pepcid] 20 mg PO BID #60 tablet 07/15/20 Rx Metoprolol Tartrate [Lopressor] 25 mg PO BID #60 tab 07/15/20 Rx Nitrofurantoin Monohyd/M-Cryst 100 mg PO BID 07/15/20 07/15/20 History [Macrobid] Zinc 50 mg PO DAILY #30 tablet 07/15/20 Rx Allergies Allergy/AdvReac Type Severity Reaction Status Date / Time Iodinated Contrast Media Allergy Rash/Hives Verified 07/15/20 09:04 [Iodinated Contrast- Oral and IV Dye] diazepam AdvReac Confusion Verified 07/15/20 09:04 Physical Exam Vitals: Vital Signs Temp Pulse Resp BP Pulse Ox 07/15/20 10:00 74 18 96 07/15/20 09:46 74 18 127/74 95 07/15/20 08:46 71 18 125/69 95 07/15/20 06:39 98 F 99 20 143/73 97 Intake and Output 07/14/20 07/15/20 07/15/20 22:59 06:59 14:59 Other: Weight 50.802 kg Results CBC & Chem 7: 07/15/20 07:20 07/15/20 07:20 Labs: Abnormal Lab Results - Last 24 Hours (Table) 07/15/20 07/15/20 07/15/20 Range/Units 07:20 07:20 07:49 WBC 2.4 L (3.8-10.6) k/uL Plt Count 121 L (150-450) k/uL Lymphocytes # 0.4 L (1.0-4.8) k/uL D-Dimer 1.50 H (<0.60) mg/L FEU Urine Protein Trace H (Negative) Urine Ketones 1+ H (Negative) Urine Blood Trace H (Negative) Ur Leukocyte Esterase Large H (Negative) Ur Squamous Epith Cells 5 H (0-4) /hpf Urine Bacteria Rare H (None) /hpf Urine Mucus Rare H (None) /hpf Coronavirus (PCR) (Not Detectd) 07/15/20 Range/Units 10:00 WBC (3.8-10.6) k/uL Plt Count (150-450) k/uL Lymphocytes # (1.0-4.8) k/uL D-Dimer (<0.60) mg/L FEU Urine Protein (Negative) Urine Ketones (Negative) Urine Blood (Negative) Ur Leukocyte Esterase (Negative) Ur Squamous Epith Cells (0-4) /hpf Urine Bacteria (None) /hpf Urine Mucus (None) /hpf Coronavirus (PCR) Detected A (Not Detectd)
--- NOTE | 2020-07-15 23:37 | P.DS ---
Providers Date of admission: 07/15/20 08:33 Expected date of discharge: 07/15/20 Attending physician: Silvano Good Consults: 07/15/20 08:33 Consult Physician Routine Consulting Provider: Kobe Meredith Consult Reason/Comments: possible new onset aflutter? dyspnea on exertion Do you want consulting provider notified?: Yes Primary care physician: Tomas Vallejo [facility] Course: Chief Complaint: Abnormal remote telemetry History of presenting complaint: This is a pleasant 80-year-old patient, follows a Dr. Tomas Vallejo. Chronic stable medical conditions include COPD, hypertension, osteoarthritis, colon cancer or osteoporosis. Patient was called us morning by heart monitor company stating that was irregular heartbeat and told to come in. Patient had some slight shortness of breath is not different than her baseline. No cough. No fever no chills. She was being treated for a UTI with nitrofurantoin. Admitted for the same. Cardiology was consulted. EKG initially showed sinus tachycardia. Patient was cleared by currently. Patient's COPD symptoms are more at her baseline. She'll be given supplemental Pepcid Zithromax. Advised about quarantine procedure for the same. Consultation: Dr. Samantha Peacock from cardiology Physical examination: VITAL SIGNS: 98, 99, 20, 09/16/1993, 96% room air GENERAL: BMI 17.5, sitting up in bed, comfortable. EYES: Pupils equal. Conjunctiva normal. HEENT: External appearance of nose and ears normal, oral cavity grossly normal. NECK: JVD not raised; masses not palpable. HEART: First and second heart sounds are normal; no edema. LUNGS: Respiratory rate increased; decreased breath sounds. ABDOMEN: Soft, nontender, liver spleen not palpable, no masses palpable. PSYCH: Alert and oriented x3; mood and affect normal MUSCULAR skeletal: Evidence of OA. INVESTIGATIONS, reviewed in the clinical context: White count 2.4 hemoglobin 13.6 lymphocytes 0.4 d-dimer 1.5 potassium 3.5 creatinine 0.65 COVID 19 PCR detected UA positive EKG tracing personally reviewed by me-sinus tachycardia Computed tomography scan of the chest-negative for PE. Dependent lower lobe pulmonary fibrosis. Right middle lobe nodule. Chest x-ray film personally reviewed by me-possibly chronic changes Assessment: -Sinus tachycardia asymptomatic -COVID 19 positive predominantly asymptomatic. Patient has baseline COPD symptoms -COPD in an ex-smoker -Primary osteoarthritis -Essential hypertension -Asymptomatic bacteriuria -Mild protein calorie malnutrition from decreased oral intake Disposition: Home Patient Condition at Discharge: Stable Plan - Discharge Summary New Discharge Prescriptions: New Metoprolol Tartrate [Lopressor] 25 mg PO BID #60 tab Famotidine [Pepcid] 20 mg PO BID #60 tablet Zinc 50 mg PO DAILY #30 tablet Continue amLODIPine [Norvasc] 5 mg PO DAILY Cholecalciferol (Vitamin D3) [Vitamin D3] 2,000 unit PO DAILY Calcium Carb/Vitamin D3/Vit K1 [Citracal-D3 500 mg Soft Chew] 1 tab PO DAILY Denosumab [Prolia] 60 mg SQ Q180D Nitrofurantoin Monohyd/M-Cryst [Macrobid] 100 mg PO BID Discharge Medication List amLODIPine [Norvasc] 5 mg PO DAILY 10/10/16 [History] Calcium Carb/Vitamin D3/Vit K1 [Citracal-D3 500 mg Soft Chew] 1 tab PO DAILY 10/15/17 [History] Cholecalciferol (Vitamin D3) [Vitamin D3] 2,000 unit PO DAILY 10/15/17 [History] Denosumab [Prolia] 60 mg SQ Q180D 10/15/17 [History] Famotidine [Pepcid] 20 mg PO BID #60 tablet 07/15/20 [Rx] Metoprolol Tartrate [Lopressor] 25 mg PO BID #60 tab 07/15/20 [Rx] Nitrofurantoin Monohyd/M-Cryst [Macrobid] 100 mg PO BID 07/15/20 [History] Zinc 50 mg PO DAILY #30 tablet 07/15/20 [Rx] Follow up Appointment(s)/Referral(s): Toams Vallejo MD [Primary Care Provider] - 1 Week Ariel Peacock MD [STAFF PHYSICIAN] - 08/05/20 3:15 pm Patient Instructions/Handouts: Atrial Flutter (DC)
--- NOTE | 2020-07-19 16:00 | ECHOF ---
Referral Reason: MEASUREMENTS -------- HEIGHT: 170.2 cm WEIGHT: 50.8 kg BP: 121/84 IVSd: 1.3 cm (0.6 - 1.1) LVIDd: 3.7 cm (3.9 - 5.3) LVPWd: 1.2 cm (0.6 - 1.1) EDV(Teich): 57 ml IVSs: 1.6 cm LVIDs: 2.6 cm LVPWs: 1.5 cm %IVS Thck: 28 % ESV(Teich): 25 ml EF(Teich): 56 % %FS: 29 % SV(Teich): 32 ml RVIDd: 3.5 cm (< 3.3) IVC: 19.87 mm LALs A4C: 6.8 cm LAAs A4C: 30.3 cm LAESV A-L A4C: 115 ml LAESV MOD A4C: 108 ml LALs A2C: 6.7 cm LAAs A2C: 34.0 cm LAESV A-L A2C: 147 ml LAESV MOD A2C: 140 ml LAESV(A-L): 131 ml LAESV Index (A-L): 82.76 ml/m Ao Diam: 3.1 cm (2.0 - 3.7) AV Cusp: 1.7 cm (1.5 - 2.6) EPSS: 0.7 cm MV E Camron: 0.82 m/s MV DecT: 151 ms MV Dec [place]: 5.4 m/s MV A Camron: 0.71 m/s MV E/A Ratio: 1.14 MV PHT: 44 ms LVOT Vmax: 0.83 m/s LVOT maxP.75 mmHg AV Vmax: 1.64 m/s AV maxP.82 mmHg TR Vmax: 3.38 m/s TR maxP.61 mmHg RAP: 20.00 mmHg RVSP: 65.61 mmHg MV EF SLOPE: 117.17 mm/s (70 - 150) MV EXCURSION: 26.59 mm (> 18.000) FINDINGS -------- Sinus rhythm. This was a technically adequate study. The left ventricular size is normal. There is moderate concentric left ventricular hypertrophy. O verall left ventricular systolic function is normal with, an EF between 55 - 60 %. The right ventricle is mildly enlarged. LA is severely dilated >40 ml/m2 The right atrial size is normal. Interatrial and interventricular septum intact. The aortic valve is trileaflet and appears structurally normal. Trace amount of aortic regurgitatio n. There is no evidence of aortic stenosis. Severe mitral regurgitation is present , predominately a posteriorly directed jet. Moderate prolaps e of the anterior mitral valve leaflet. Moderate to severe tricuspid regurgitation present. There is severe pulmonary hypertension. The r ight ventricular systolic pressure, as measured by Doppler, is 65.61mmHg. There is no pulmonic regurgitation present. The aortic root size is normal. The inferior vena cava is dilated with poor inspiratory collapse which is consistent with estimated r ight atrial pressure of 20 mmHg. There is no pericardial effusion. CONCLUSIONS -------- 1. The left ventricular size is normal. 2. There is moderate concentric left ventricular hypertrophy. 3. Overall left ventricular systolic function is normal with, an EF between 55 - 60 %. 4. The right ventricle is mildly enlarged. 5. LA is severely dilated >40 ml/m2 6. Trace amount of aortic regurgitation. 7. Severe mitral regurgitation is present. 8. , predominately a posteriorly directed jet. 9. 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 10. Moderate to severe tricuspid regurgitation present. 11. There is severe pulmonary hypertension. 12. The right ventricular systolic pressure, as measured by Doppler, is 65.61mmHg. 13. The inferior vena cava is dilated with poor inspiratory collapse which is consistent with estimat ed right atrial pressure of 20 mmHg. RETORT UNLOADER: Sara Ferrer RDCS
== END 2020-07-15 15:31 | disposition left against medical advice (07) ==
LOC: EC 06:39 → 1SOBS 08:33
PROVIDERS: ADMIT Hospitalist; ATTEND Hospitalist
DX: I47.2 Ventricular tachycardia (principal); I47.1 Supraventricular tachycardia; I34.1 Nonrheumatic mitral (valve) prolapse; N39.0 Urinary tract infection, site not specified; U07.1 COVID-19; J44.9 Chronic obstructive pulmonary disease, unspecified; R91.1 Solitary pulmonary nodule; M19.91 Primary osteoarthritis, unspecified site; I44.0 Atrioventricular block, first degree; I10 Essential (primary) hypertension; E44.1 Mild protein-calorie malnutrition; Z68.1 Body mass index [BMI] 19.9 or less, adult; M81.0 Age-related osteoporosis without current pathological fracture; C18.9 Malignant neoplasm of colon, unspecified; I48.92 Unspecified atrial flutter; R11.0 Nausea; R06.00 Dyspnea, unspecified; Z79.899 Other long term (current) drug therapy; Z88.8 Allergy status to other drugs, medicaments and biological substances; Z91.041 Radiographic dye allergy status; Z85.038 Personal history of other malignant neoplasm of large intestine; Z87.891 Personal history of nicotine dependence; Z90.49 Acquired absence of other specified parts of digestive tract; Z82.49 Family history of ischemic heart disease and other diseases of the circulatory system
CPT/HCPCS: 96365; 96366; 96375; 99285; 36415; 93005; 93306; 85379; 83880; 80053; 84443; 83735; 84484; 85025; 85610; 85730; 81001; 87635; 71046; 71275; G0378; J1200; J2930; J0696; Q9967

== ENCOUNTER → 2020-12-01 | Outpatient (CLI) | payer MEDICARE, BC ==
[2020-12-01 10:25] VITALS: BP 140/77; PULSE 76; RESP 18; TEMP 97.8
== END ==
LOC: PROCWHC3 10:04
PROVIDERS: ATTEND Family Medicine
DX: M81.0 Age-related osteoporosis without current pathological fracture (principal)
CPT/HCPCS: 96372; J0897

== ENCOUNTER → 2021-06-16 | Outpatient (CLI) | payer MEDICARE, BC ==
[~2021-06-16] MED LIST changes: -DENOSUMAB 60 MG/ML 1 ML SYRINGE SQ NR; +DENOSUMAB 60 MG/ML 1 ML SYRINGE SQ ONE
[2021-06-16 11:20] VITALS: BP 154/85; PULSE 72; RESP 16; TEMP 98.2
== END ==
LOC: PROCWHC3 10:56
PROVIDERS: ATTEND Family Medicine
DX: M81.0 Age-related osteoporosis without current pathological fracture (principal); Z87.891 Personal history of nicotine dependence; Z91.041 Radiographic dye allergy status; Z88.8 Allergy status to other drugs, medicaments and biological substances

== ENCOUNTER 2021-10-28 16:23 | Emergency (ER) | payer MEDICARE, BC ==
[2021-10-28 16:31] VITALS: BP 158/84; PULSE 59; RESP 16; TEMP 98.1
--- NOTE | 2021-10-28 18:32 | CT ---
EXAMINATION TYPE: CT brain lyle pablo con DATE OF EXAM: 10/28/2021 COMPARISON: None HISTORY: fall CT DLP: 1261.5 mGycm Automated exposure control for dose reduction was used. Images of the brain and cervical spine obtained without contrast. There is mild atrophy. There is no mass effect or midline shift. There is no sign of intracranial hem orrhage. There is some hypodensity in the periventricular white matter. Calvarium is intact. Skull base is intact. There is normal aeration of the mastoid sinuses. The cervical vertebra have normal alignment. There is some spurring and disc space narrowing at C6-7. Facet joints are intact. IMPRESSION: Cerebral atrophy and chronic small vessel ischemia. No acute intracranial abnormality. Spondylotic changes at C6-7. No fracture.
--- NOTE | 2021-10-28 18:54 | ED ---
General Adult HPI - General Chief complaint: Syncope Stated complaint: Fall,Head Injury Time Seen by Provider: 10/28/21 17:45 Source: patient Mode of arrival: wheelchair Limitations: no limitations - History of Present Illness Initial comments: Patient is an 81-year-old female who presents to the emergency department with chief complaint of syncope. Patient reports she was going to lay down in bed when she started to feel dizzy. Patient saw specks of black in her vision and went to lay in the bed and instead hit her head on the dresser. She is not on blood thinners. Patient has no complaints of pain at this time. She has no other concerns including fever, chills, shortness of breath, chest pain, abdominal pain, and dysuria. Her grandson does mention that patient has felt dizzy before similar to today due to urinary tract infection. - Related Data Home Medications Medication Instructions Recorded Confirmed Cholecalciferol (Vitamin D3) 2,000 unit PO DAILY 10/15/17 10/28/21 [Vitamin D3] lisinopriL [Zestril] 5 mg PO DAILY 06/16/21 10/28/21 Furosemide [Lasix] 20 mg PO DAILY 10/28/21 10/28/21 Multivitamins, Thera [Multivitamin 1 tab PO DAILY 10/28/21 10/28/21 (formulary)] Previous Rx's Medication Instructions Recorded Famotidine [Pepcid] 20 mg PO BID #60 tablet 07/15/20 Metoprolol Tartrate [Lopressor] 25 mg PO BID #60 tab 07/15/20 Allergies Allergy/AdvReac Type Severity Reaction Status Date / Time Iodinated Contrast Media Allergy Rash/Hives Verified 10/28/21 18:29 [Iodinated Contrast- Oral and IV Dye] diazepam AdvReac Confusion Verified 10/28/21 18:29 Review of Systems ROS Statement: Those systems with pertinent positive or pertinent negative responses have been documented in the HPI. ROS Other: All systems not noted in ROS Statement are negative. Past Medical History Past Medical History: Cancer, COPD, Hypertension, Osteoarthritis (OA) Additional Past Medical History / Comment(s): hx. colon cancer 2011-new reoccurence, osteoporosis, recent stress test, UTI History of Any Multi-Drug Resistant Organisms: None Reported Past Surgical History: Bowel Resection, Orthopedic Surgery, Tubal Ligation Additional Past Surgical History / Comment(s): cataract surg., D & C, ORIF left tib/fib, colonoscopy Past Anesthesia/Blood Transfusion Reactions: No Reported Reaction Past Psychological History: No Psychological Hx Reported Smoking Status: Former smoker Past Alcohol Use History: None Reported Past Drug Use History: None Reported - Past Family History Sister(s) Family Medical History: Congestive Heart Failure (CHF), Deep Vein Thrombosis (DVT) General Exam Limitations: no limitations General appearance: alert, in no apparent distress Head exam: Present: atraumatic, normocephalic, normal inspection (The laceration, erythema, or ecchymosis) Eye exam: Present: normal appearance, PERRL, EOMI. Absent: scleral icterus, conjunctival injection, periorbital swelling Respiratory exam: Present: normal lung sounds bilaterally. Absent: respiratory distress, wheezes, rales, rhonchi, stridor Cardiovascular Exam: Present: regular rate, normal rhythm, normal heart sounds. Absent: systolic murmur, diastolic murmur, rubs, gallop, clicks GI/Abdominal exam: Present: soft, normal bowel sounds. Absent: distended, tenderness, guarding, rebound, rigid Neurological exam: Present: alert, oriented X3, CN II-XII intact Psychiatric exam: Present: normal affect, normal mood Skin exam: Present: warm, dry, intact, normal color. Absent: rash Course Vital Signs 10/28/21 16:28 Temperature 98.1 F Pulse Rate 59 L Respiratory 16 Rate Blood Pressure 158/84 O2 Sat by Pulse 97 Oximetry EKG Findings - EKG Comments: EKG Findings:: EKG taken at 18:47. Sinus rhythm with first-degree AV block with frequent ventricular premature complexes. Ventricular rate 77. WI interval 222. QRS duration 86. QTC 419 Medical Decision Making - Medical Decision Making This is an 81-year-old female who presents with syncope and fall. Thorough history and examination were performed. Laboratory studies are unremarkable. Urinalysis does not indicate infection. CT of the brain and C-spine without contrast reveals no acute intracranial abnormality. On reevaluation patient is sitting in bed talking to her grandson. Patient will be discharged with instruction to follow up with primary care provider in one to 2 days. Return parameters discussed. Patient and grandson verbalized understanding and are agreeable to plan. Dr. Blanco is my attending. - Lab Data Result diagrams: 10/28/21 18:50 10/28/21 18:50 Lab Results 10/28/21 10/28/21 10/28/21 Range/Units 18:50 18:50 18:50 WBC 4.5 (3.8-10.6) k/uL RBC 4.83 (3.80-5.40) m/uL Hgb 13.1 (11.4-16.0) gm/dL Hct 40.9 (34.0-46.0) % MCV 84.7 (80.0-100.0) fL MCH 27.2 (25.0-35.0) pg MCHC 32.1 (31.0-37.0) g/dL RDW 15.8 H (11.5-15.5) % Plt Count 207 (150-450) k/uL MPV 6.5 Neutrophils % 65 % Lymphocytes % 23 % Monocytes % 8 % Eosinophils % 2 % Basophils % 0 % Neutrophils # 2.9 (1.3-7.7) k/uL Lymphocytes # 1.0 (1.0-4.8) k/uL Monocytes # 0.3 (0-1.0) k/uL Eosinophils # 0.1 (0-0.7) k/uL Basophils # 0.0 (0-0.2) k/uL Sodium 139 (137-145) mmol/L Potassium 4.6 (3.5-5.1) mmol/L Chloride 109 H (98-107) mmol/L Carbon Dioxide 23 (22-30) mmol/L Anion Gap 7 mmol/L BUN 24 H (7-17) mg/dL Creatinine 0.83 (0.52-1.04) mg/dL Est GFR (CKD-EPI)AfAm 76 (>60 ml/min/1.73 sqM) Est GFR (CKD-EPI)NonAf 66 (>60 ml/min/1.73 sqM) Glucose 90 (74-99) mg/dL Calcium 9.2 (8.4-10.2) mg/dL Total Bilirubin 0.6 (0.2-1.3) mg/dL AST 28 (14-36) U/L ALT 17 (4-34) U/L Alkaline Phosphatase 53 (38-126) U/L Total Protein 7.5 (6.3-8.2) g/dL Albumin 4.3 (3.5-5.0) g/dL Urine Color Yellow Urine Appearance Clear (Clear) Urine pH 5.5 (5.0-8.0) Ur Specific Jackson 1.018 (1.001-1.035) Urine Protein Negative (Negative) Urine Glucose (UA) Negative (Negative) Urine Ketones Negative (Negative) Urine Blood Negative (Negative) Urine Nitrite Negative (Negative) Urine Bilirubin Negative (Negative) Urine Urobilinogen <2.0 (<2.0) mg/dL Ur Leukocyte Esterase Trace H (Negative) Urine RBC 2 (0-5) /hpf Urine WBC 2 (0-5) /hpf Ur Squamous Epith Cells 4 (0-4) /hpf Hyaline Casts 3 H (0-2) /lpf Urine Mucus Rare H (None) /hpf Disposition Clinical Impression: Syncope, Fall, Dizziness Disposition: HOME SELF-CARE Condition: Good Instructions (If sedation given, give patient instructions): Dizziness (ED) Additional Instructions: Follow-up with primary care provider in one to 2 days. Return to the emergency department if you experience new, concerning, or worsening symptoms. Is patient prescribed a controlled substance at d/c from ED?: No Referrals: Tomas Vallejo MD [Primary Care Provider] - 1-2 days Time of Disposition: 19:22
[2021-10-28 18:58] LABS: Basophils % (A) 0 %; Eosinophils # (A) 0.1 k/uL (0-0.7); Eosinophils % (A) 2 %; HCT 40.9 % (34.0-46.0); HGB 13.1 gm/dL (11.4-16.0); Lymphocytes % (A) 23 %; MCH 27.2 pg (25.0-35.0); MCHC 32.1 g/dL (31.0-37.0); MCV 84.7 fL (80.0-100.0); Mean Platelet Volume 6.5; Monocytes # (A) 0.3 k/uL (0-1.0); Monocytes % (A) 8 %; Neutrophils # (A) 2.9 k/uL (1.3-7.7); Neutrophils % (A) 65 %; Platelet Count 207 k/uL (150-450); RBC 4.83 m/uL (3.80-5.40); RDW 15.8 % (11.5-15.5); WBC 4.5 k/uL (3.8-10.6)
[2021-10-28 19:07] LABS: Albumin 4.3 g/dL (3.5-5.0); Appearance,Urine Clear (Clear); Bilirubin,Urine Negative (Negative); Blood,Urine Negative (Negative); Calcium 9.2 mg/dL (8.4-10.2); Color,Urine Yellow; Glucose,Urine (UA) Negative (Negative); Hyaline Casts,Urine 3 /lpf (0-2); Ketones,Urine Negative (Negative); Leukocyte Esterase,Urine Trace (Negative); Mucus,Urine Rare /hpf; Nitrite,Urine Negative (Negative); PH, Urine 5.5 (5.0-8.0); Potassium 4.6 mmol/L (3.5-5.1); Protein,Urine Negative (Negative); RBC,Urine 2 /hpf (0-5); Specific Gravity,Urine 1.018 (1.001-1.035); Squamous Epithelial Cell,Urine 4 /hpf (0-4); Total Bilirubin 0.6 mg/dL (0.2-1.3); Total Protein 7.5 g/dL (6.3-8.2); Urobilinogen,Urine <2.0 mg/dL (<2.0); WBC,Urine 2 /hpf (0-5)
== END 2021-10-28 19:37 | disposition home or self-care (01) ==
LOC: EC 16:23
DX: R55 Syncope and collapse (principal); R42 Dizziness and giddiness; J44.9 Chronic obstructive pulmonary disease, unspecified; I10 Essential (primary) hypertension; M19.90 Unspecified osteoarthritis, unspecified site; Z88.1 Allergy status to other antibiotic agents; Z85.038 Personal history of other malignant neoplasm of large intestine; Z87.440 Personal history of urinary (tract) infections; Z98.51 Tubal ligation status; Z87.891 Personal history of nicotine dependence
CPT/HCPCS: 36415; 70450; 72125; 80053; 81001; 85025; 93005; 99284

== ENCOUNTER → 2021-12-19 | Outpatient (CLI) | payer MEDICARE, BC ==
[~2021-12-19] MED LIST changes: +DENOSUMAB 60 MG/ML 1 ML SYRINGE SQ NR; -DENOSUMAB 60 MG/ML 1 ML SYRINGE SQ ONE
[2021-12-19 13:47] VITALS: BP 130/77; PULSE 96; RESP 18; TEMP 97.5
== END | disposition home or self-care (01) ==
LOC: PROCWHC3 13:30
PROVIDERS: ATTEND Family Medicine
DX: M81.0 Age-related osteoporosis without current pathological fracture (principal)
CPT/HCPCS: 96372; J0897

== ENCOUNTER → 2021-12-20 | Outpatient (CLI) | payer MEDICARE, BC ==
--- NOTE | 2021-12-20 22:30 | BD ---
EXAMINATION TYPE: Axial Bone Density DATE OF EXAM: 12/20/2021 COMPARISON: Prior bone scan 2016 CLINICAL HISTORY: 81 years year old Female. ICD-10 CODE: M85.88 Height: 63 Weight: 133.5 FRAX RISK QUESTIONS: Alcohol (3 or more units per day): NO Family History (Parent hip fracture): NO Glucocorticoids (More than 3mos): NO (Ex: prednisone, prednisolone, methylprednisolone, dexamethasone, and hydrocortisone). History of Fracture in Adulthood: YES ANKLE Secondary Osteoporosis: 1. Type 1 Diabetes: NO 2. Hyperthyroidism: NO 3. Menopause before 45: NO 4. Malnutrition: NO 5. Chronic liver disease: NO Rheumatoid Arthritis: NO Current Tobacco Use: NO RISK FACTORS HISTORY OF: Hip Fracture (Right/Left): NO Spine Fracture: NO History of Wrist Fracture: MO Surgery to Spine/Hip(right/left)/Wrist (right/left): NO Family History of Osteoporosis: NO Active: YES Diet low in dairy products/other sources of calcium: YES Take estrogen and/or progesterone medications: NO Lost more than 2 inches in height since high school: YES Frequent falls: UNSTEADY Poor Health: NO Hyperparathyroidism: NO Adrenal Insufficiency: NO MEDICATIONS: SEE MED LIST Prednisone or other steroids: NO Thyroid Medications: NO Osteoporosis Medications: YES Which medication: PROLIA How Lon YEARS Additional Medications: Additional History: EXAM MEASUREMENTS: Bone mineral densitometry was performed using the Seer System. Bone mineral density as measured about the Lumbar spine is: ----- L1-L4(G/cm2): 0.900 T Score Values are as follows: ----- L1: -3.3 ----- L2: -2.3 ----- L3: -2.5 ----- L4: -1.7 ----- L1-L4: -2.32 Bone mineral density has: INCREASED 7.0 % since study of: 2016 Bone mineral density about the R hip (g/cm2): 0.829 Bone mineral density about the L hip (g/cm2): 0.822 T Score values are as follows: -----R Neck: -1.5 -----L Neck: -1.6 -----R Total: -0.8 -----L Total: -0.7 Bone mineral density has: INCREASED 2.0 % since study of: 2017 FRAX%s: The graph provided illustrates a 13.4% chance for a major osteoporotic fx and a 3.7% chance f or the hips probability for fx in 10 years time. IMPRESSION: Osteopenia (T Score between -2.5 and -1). There is slightly increased risk of fracture and the patient may be considered for treatment. Re-Screen 2-5 years. NOTE: T-SCORE=SD OF THE YOUNG ADULT MEAN.
--- NOTE | 2021-12-21 13:38 | MM ---
Reason for exam: screening (asymptomatic). Last mammogram was performed 1 year and 6 months ago. History: Patient is postmenopausal and has history of colon cancer at age 72. Family history of breast cancer in grandmother. Physical Findings: A clinical breast exam by your physician is recommended on an annual basis and results should be correlated with mammographic findings. MG 3D Screening Mammo W/Cad Bilateral CC and MLO view(s) were taken. Prior study comparison: June 29, 2020, bilateral MG 3d screening mammo w/cad. February 12, 2019, bilateral MG 3d screening mammo w/cad. The breast tissue is heterogeneously dense. This may lower the sensitivity of mammography. There are benign appearing round, vascular calcifications bilaterally. There is no discrete abnormality. ASSESSMENT: Benign, BI-RAD 2 RECOMMENDATION: Routine screening mammogram of both breasts in 1 year.
== END | disposition home or self-care (01) ==
LOC: RADMAMWWP 13:22
PROVIDERS: ATTEND Obstetrics & Gynecology
DX: Z12.31 Encounter for screening mammogram for malignant neoplasm of breast (principal); M85.89 Other specified disorders of bone density and structure, multiple sites; Z78.0 Asymptomatic menopausal state; Z85.038 Personal history of other malignant neoplasm of large intestine; Z80.3 Family history of malignant neoplasm of breast
CPT/HCPCS: 77063; 77067; 77080

== ENCOUNTER 2022-05-14 11:29 | Inpatient (IN) | payer MEDICARE, BC ==
[2022-05-14 13:01] LABS: Basophils % (A) 0 %; Eosinophils # (A) 0.1 k/uL (0-0.7); Eosinophils % (A) 1 %; HGB 12.9 gm/dL (11.4-16.0); Hypochromasia Moderate; Lymphocytes # (A) 0.7 k/uL (1.0-4.8); Lymphocytes % (A) 12 %; MCH 25.9 pg (25.0-35.0); MCHC 31.3 g/dL (31.0-37.0); MCV 82.7 fL (80.0-100.0); Monocytes # (A) 0.4 k/uL (0-1.0); Monocytes % (A) 6 %; Neutrophils # (A) 4.5 k/uL (1.3-7.7); Neutrophils % (A) 79 %; Platelet Count 234 k/uL (150-450); RBC 4.96 m/uL (3.80-5.40); RDW 15.6 % (11.5-15.5); WBC 5.7 k/uL (3.8-10.6)
--- NOTE | 2022-05-14 13:05 | ED ---
SOB HPI - General Chief Complaint: Shortness of Breath Stated Complaint: poss PE Time Seen by Provider: 05/14/22 12:01 Source: patient Mode of arrival: wheelchair Limitations: no limitations - History of Present Illness Initial Comments: 81-year-old female with past medical history of COPD, colon cancer, hypertension who presents the emergency department for possible PE. States that over the past months she has had worsening shortness of breath, especially with exertion. States that she can only walk a few feet before she has to sit down and rest. She has had some lower extremity edema. She takes Lasix 20 mg daily however denies a diagnosis of congestive heart failure. She denies a history of coronary disease or dysrhythmia. Patient denies lung history and does not use inhalers. She follows with Dr. Guardado and had an echo approximately 2 months ago. She went to an urgent care today. Chest x-ray and EKG was performed. Chest x- ray was concerning for pleural fluid and therefore the patient was transferred to the hospital for further evaluation. She denies fevers, chills or cough. No other alleviating, precipitating or modifying factors - Related Data Home Medications Medication Instructions Recorded Confirmed lisinopriL [Zestril] 5 mg PO DAILY@0800 06/16/21 05/14/22 Furosemide [Lasix] 20 mg PO DAILY@0800 10/28/21 05/14/22 Famotidine [Pepcid] 20 mg PO BID@0800,199905/14/22 05/14/22 Metoprolol Tartrate [Lopressor] 25 mg PO BID@0800,199905/14/22 05/14/22 Multivit-Min/Iron/Folic/Lutein 1 tab PO DAILY@0800 05/14/22 05/14/22 [Centrum Silver Women Tablet] Allergies Allergy/AdvReac Type Severity Reaction Status Date / Time Iodinated Contrast Media Allergy Rash/Hives Verified 05/14/22 14:51 [Iodinated Contrast- Oral and IV Dye] diazepam AdvReac Confusion Verified 05/14/22 14:51 Review of Systems ROS Statement: Those systems with pertinent positive or pertinent negative responses have been documented in the HPI. ROS Other: All systems not noted in ROS Statement are negative. Past Medical History Past Medical History: Cancer, COPD, Hypertension, Osteoarthritis (OA) Additional Past Medical History / Comment(s): hx. colon cancer 2012-new reoccurence, osteoporosis, recent stress test, UTI History of Any Multi-Drug Resistant Organisms: None Reported Past Surgical History: Bowel Resection, Orthopedic Surgery, Tubal Ligation Additional Past Surgical History / Comment(s): cataract surg., D & C, ORIF left tib/fib, colonoscopy Past Anesthesia/Blood Transfusion Reactions: No Reported Reaction Past Psychological History: No Psychological Hx Reported Smoking Status: Former smoker - Past Family History Sister(s) Family Medical History: Congestive Heart Failure (CHF), Deep Vein Thrombosis (DVT) General Exam Limitations: no limitations Course Vital Signs 05/14/22 05/14/22 05/14/22 11:35 12:36 14:05 Temperature 97.5 F L Pulse Rate 82 90 115 H Respiratory 18 18 18 Rate Blood Pressure 141/90 150/87 158/103 O2 Sat by Pulse 96 94 L 97 Oximetry 05/14/22 15:50 Temperature Pulse Rate 102 H Respiratory 18 Rate Blood Pressure 135/90 O2 Sat by Pulse 96 Oximetry Medical Decision Making - Medical Decision Making Upon arrival patient was placed in room 17. A thorough history and physical exam was performed. IV access established laboratory studies were conducted. Patient is in A. fib. Family does report that she does have a history of recently diagnosed A. fib. Not on any anticoagulation. Laboratory studies are reviewed. D-dimer elevated at 1.79. She does have a iodine ALLERGY and ther efore she is given Benadryl, prednisone and Pepcid. Patient does have adverse reaction to the Benadryl and therefore is given Ativan. CT is performed which does not demonstrate PE. Large pleural effusions. Patient was given 40 mg of Lasix through the IV. Patient will be admitted to [facility]. Spoke with Dr. Rose who was agreeable to admit the patient. - Lab Data Result diagrams: 05/14/22 12:40 05/14/22 13:20 Lab Results 05/14/22 05/14/22 05/14/22 Range/Units 12:40 12:40 12:40 WBC 5.7 (3.8-10.6) k/uL RBC 4.96 (3.80-5.40) m/uL Hgb 12.9 (11.4-16.0) gm/dL Hct 41.0 (34.0-46.0) % MCV 82.7 (80.0-100.0) fL MCH 25.9 (25.0-35.0) pg MCHC 31.3 (31.0-37.0) g/dL RDW 15.6 H (11.5-15.5) % Plt Count 234 (150-450) k/uL MPV 7.0 Neutrophils % 79 % Lymphocytes % 12 % Monocytes % 6 % Eosinophils % 1 % Basophils % 0 % Neutrophils # 4.5 (1.3-7.7) k/uL Lymphocytes # 0.7 L (1.0-4.8) k/uL Monocytes # 0.4 (0-1.0) k/uL Eosinophils # 0.1 (0-0.7) k/uL Basophils # 0.0 (0-0.2) k/uL Hypochromasia Moderate PT 11.4 (9.0-12.0) sec INR 1.1 (<1.2) APTT 24.0 (22.0-30.0) sec D-Dimer 1.79 H (<0.60) mg/L FEU Sodium (137-145) mmol/L Potassium (3.5-5.1) mmol/L Chloride (98-107) mmol/L Carbon Dioxide (22-30) mmol/L Anion Gap mmol/L BUN (7-17) mg/dL Creatinine (0.52-1.04) mg/dL Est GFR (CKD-EPI)AfAm (>60 ml/min/1.73 sqM) Est GFR (CKD-EPI)NonAf (>60 ml/min/1.73 sqM) Glucose (74-99) mg/dL Plasma Lactic Acid Hermilo 1.2 (0.7-2.0) mmol/L Calcium (8.4-10.2) mg/dL Magnesium (1.6-2.3) mg/dL Total Bilirubin (0.2-1.3) mg/dL AST (14-36) U/L ALT (4-34) U/L Alkaline Phosphatase (38-126) U/L Troponin I (0.000-0.034) ng/mL NT-Pro-B Natriuret Pep pg/mL Total Protein (6.3-8.2) g/dL Albumin (3.5-5.0) g/dL 05/14/22 05/14/22 05/14/22 Range/Units 12:40 13:20 13:20 WBC (3.8-10.6) k/uL RBC (3.80-5.40) m/uL Hgb (11.4-16.0) gm/dL Hct (34.0-46.0) % MCV (80.0-100.0) fL MCH (25.0-35.0) pg MCHC (31.0-37.0) g/dL RDW (11.5-15.5) % Plt Count (150-450) k/uL MPV Neutrophils % % Lymphocytes % % Monocytes % % Eosinophils % % Basophils % % Neutrophils # (1.3-7.7) k/uL Lymphocytes # (1.0-4.8) k/uL Monocytes # (0-1.0) k/uL Eosinophils # (0-0.7) k/uL Basophils # (0-0.2) k/uL Hypochromasia PT (9.0-12.0) sec INR (<1.2) APTT (22.0-30.0) sec D-Dimer (<0.60) mg/L FEU Sodium 140 (137-145) mmol/L Potassium 4.4 (3.5-5.1) mmol/L Chloride 106 (98-107) mmol/L Carbon Dioxide 23 (22-30) mmol/L Anion Gap 11 mmol/L BUN 20 H (7-17) mg/dL Creatinine 1.00 (0.52-1.04) mg/dL Est GFR (CKD-EPI)AfAm 61 (>60 ml/min/1.73 sqM) Est GFR (CKD-EPI)NonAf 53 (>60 ml/min/1.73 sqM) Glucose 89 (74-99) mg/dL Plasma Lactic Acid Hermilo (0.7-2.0) mmol/L Calcium 8.8 (8.4-10.2) mg/dL Magnesium 2.0 (1.6-2.3) mg/dL Total Bilirubin 0.7 (0.2-1.3) mg/dL AST 42 H (14-36) U/L ALT 43 H (4-34) U/L Alkaline Phosphatase 65 (38-126) U/L Troponin I <0.012 (0.000-0.034) ng/mL NT-Pro-B Natriuret Pep 3670 pg/mL Total Protein 6.6 (6.3-8.2) g/dL Albumin 3.9 (3.5-5.0) g/dL - EKG Data EKG Comments: EKG demonstrates A. fib with a rate of 81. QRS 83. QTC of 414. PVCs. No acute ST segment elevations or depressions Disposition Clinical Impression: Exertional dyspnea, Pleural effusion, CHF exacerbation, Afib Disposition: ADMITTED IP TO THIS HOSP Condition: Serious Is patient prescribed a controlled substance at d/c from ED?: No Time of Disposition: 15:04 Decision to Admit Reason: Admit from EC Decision Date: 05/14/22 Decision Time: 15:04
[2022-05-14 13:22] LABS: INR 1.1 (<1.2)
[2022-05-14 13:23] LABS: Prothrombin Time 11.4 sec (9.0-12.0)
[2022-05-14] MEDS ORDERED: FAMOTIDINE 20 MG/2 ML VIAL IV STA (13:26)
[2022-05-14] MEDS ORDERED: diphenhydrAMINE 50 MG/ML 1 ML VIAL IVP STA (13:26)
[2022-05-14] MEDS ORDERED: methylPREDNISolone SOD SUCCI 125 MG/2 ML VIAL IV STA (13:26)
[2022-05-14 13:41] LABS: Albumin 3.9 g/dL (3.5-5.0); Calcium 8.8 mg/dL (8.4-10.2); Potassium 4.4 mmol/L (3.5-5.1); Total Bilirubin 0.7 mg/dL (0.2-1.3); Total Protein 6.6 g/dL (6.3-8.2)
[2022-05-14] MEDS ORDERED: LORazepam 2 MG/ML INJ IV STA (14:16)
--- NOTE | 2022-05-14 14:19 | CT ---
EXAMINATION TYPE: CT chest angio for PE DATE OF EXAM: 05/14/2022 COMPARISON: 07/15/2020 HISTORY: Dyspnea CT DLP: 219 mGycm Automated exposure control for dose reduction was used. CONTRAST: Performed with IV Contrast, patient injected with 80 mL of Isovue 370. Images obtained from the thoracic inlet to the diaphragm with the IV contrast. There are 3-D post pro cessed images. There are bilateral pleural effusions. Thoracic aorta is atheromatous. There is no mediastinal adenop athy. There are no hilar masses. There is normal contrast opacification of the pulmonary arteries. No filling defect. There is some atelectasis at the lung bases. There is degenerative spurring in the thoracic spine. No compression fracture. Sternum is intact. Hea rt is enlarged. There is 1 cm nodule in the right middle lobe. No suspicious pulmonary mass. IMPRESSION: No evidence of pulmonary embolism. Cardiomegaly with pleural effusions and consistent with some chronic congestive heart failure. Pleura l effusions are new compared to old exam. There is right middle lobe nodule stable compared to old ex am.
[2022-05-14] MEDS ORDERED: NALOXONE 0.4 MG/ML 1 ML VIAL IV PRN (15:04)
[2022-05-14] MEDS ORDERED: FUROSEMIDE 10 MG/ML 4 ML VIAL IV STA (15:04)
[2022-05-14] MEDS ORDERED: bisacodyL 5 MG TABLET.DR PO PRN (15:55)
[2022-05-14] MEDS ORDERED: ACETAMINOPHEN TAB 325 MG TAB PO PRN (15:55)
[2022-05-14] MEDS ORDERED: MELATONIN 3 MG TABLET PO PRN (15:55)
[2022-05-14] MEDS ORDERED: ONDANSETRON 4 MG/2 ML VIAL IVP PRN (15:55)
--- NOTE | 2022-05-14 16:00 | P.HPIM ---
History of Present Illness H&P Date: 05/14/22 Chief Complaint: shortness of breath Patient is a an 81-year-old female with history of colon cancer, COPD, and hypertension who presented to the ER with complaints of shortness of breath. On arrival her vital signs within normal limits. Initial laboratory analysis and elevated d-dimer at 1.79. She was premedicated due to her iodine ALLERGY and underwent a CT of the chest which revealed no evidence of pulmonary embolism but did demonstrate cardiomegaly and pleural effusions consistent with congestive heart failure. She has a stable right middle lobe nodule. Her EKD demonstated A fib wtih RVR. She was admitted for acute exacerbation of CHF. Patient seen and examined at bedside. Intially seen at urgent care and sent here for evlaution for blood clot. She has received IV ativan recently after having an adverse reaction of agitaion to benadryl. She is sleeping and upon waking cannot answer questions. Family as at bedside and providers history. She has been having SOB for 2 weeks that has been getting. She has also been complaining of a dry cough and some dizziness. Cardio is Dr. Peacock. Family thinks a recent diagnosis for A. fib not on any anticoagulation. Pertinent positives and negatives as discussed in HPI, a complete review of systems was performed and all other systems are negative. Vital signs reviewed General: nontoxic, no distress, appears at stated age Derm: warm, dry, ecchymosis in multiple stages of healing. Head: atraumatic, normocephalic, symmetric Eyes: EOMI, no lid lag, anicteric sclera ENT: Nose and ears atraumatic Neck: No thyromegaly, no cervical lymphadenopathy, trachea midline, supple Mouth: no lip lesion, mucus membranes moist Cardiovascular: S1S2 irreg, no murmur, positive posterior tibial pulse bilateral, 1+ edema, capillary refill less than 2 seconds Lungs: Decreased bs bilateral, no rhonchi, no rales, no wheeze, no accessory muscle use Abdominal: soft, nontender to palpation, no guarding, no appreciable organomegaly, normal bowel sounds Ext: no gross muscle atrophy, moving all 4 extremities independently, no contractures Neuro: CN II-XII grossly intact, no focal neuro defecits Psych: Lethargic, when asked if she can tell me her name she shakes head no Assessment/Plan: Newly discovered CHF Possible A fib wtih RVR Severe MR and TR - Lasix - Tele - cardio recs - had recent echo with Dr. Peacock, obtain records in AM - metoprolol - lisinopril - strict I and O - Daily weights HTN, controlled - follow BP - Continue metoprolol and lisinopril The patient is admitted with an anticipated greater than 2 midnight stay for evaluation of CHF DVT prophylaxis: SCD Discussed with: Patients family, nursing, ED provider Anticipated discharge date: in 2-[address]: home A total of 65 minutes was spent on the care of this complex patient more than 50% of the time was spent in counseling and care coordination. Past Medical History Past Medical History: Cancer, Hypertension, Osteoarthritis (OA) Additional Past Medical History / Comment(s): hx. colon cancer 2011-new reoccurence, osteoporosis, recent stress test about 2 months ago, UTI History of Any Multi-Drug Resistant Organisms: None Reported Past Surgical History: Bowel Resection, Orthopedic Surgery, Tubal Ligation Additional Past Surgical History / Comment(s): cataract surg., D & C, ORIF left tib/fib, colonoscopy Past Anesthesia/Blood Transfusion Reactions: No Reported Reaction Past Psychological History: No Psychological Hx Reported Smoking Status: Former smoker - Past Family History Sister(s) Family Medical History: Congestive Heart Failure (CHF), Deep Vein Thrombosis (DVT) Medications and Allergies Home Medications Medication Instructions Recorded Confirmed Type lisinopriL [Zestril] 5 mg PO DAILY@0800 06/16/21 05/14/22 History Furosemide [Lasix] 20 mg PO DAILY@0800 10/28/21 05/14/22 History Famotidine [Pepcid] 20 mg PO BID@08,199905/14/22 05/14/22 History Metoprolol Tartrate [Lopressor] 25 mg PO BID@0800,199905/14/22 05/14/22 History Multivit-Min/Iron/Folic/Lutein 1 tab PO DAILY@0800 05/14/22 05/14/22 History [Centrum Silver Women Tablet] Allergies Allergy/AdvReac Type Severity Reaction Status Date / Time Iodinated Contrast Media Allergy Rash/Hives Verified 05/14/22 14:51 [Iodinated Contrast- Oral and IV Dye] diazepam AdvReac Confusion Verified 05/14/22 14:51 Physical Exam Osteopathic Statement: *. No significant issues noted on an osteopathic structural exam other than those noted in the History and Physical/Consult. Vitals: Vital Signs Temp Pulse Resp BP Pulse Ox 05/14/22 14:05 115 H 18 158/103 97 05/14/22 12:36 90 18 150/87 94 L 05/14/22 11:35 97.5 F L 82 18 141/90 96 Intake and Output 05/14/22 05/14/22 05/14/22 06:59 14:59 22:59 Other: Weight 65.317 kg Results CBC & Chem 7: 05/14/22 12:40 05/14/22 13:20 Labs: Abnormal Lab Results - Last 24 Hours (Table) 05/14/22 05/14/22 05/14/22 Range/Units 12:40 12:40 13:20 RDW 15.6 H (11.5-15.5) % Lymphocytes # 0.7 L (1.0-4.8) k/uL D-Dimer 1.79 H (<0.60) mg/L FEU BUN 20 H (7-17) mg/dL AST 42 H (14-36) U/L ALT 43 H (4-34) U/L
[2022-05-14 17:37] LABS: Appearance,Urine Clear (Clear); Bacteria,Urine Rare /hpf; Bilirubin,Urine Negative (Negative); Blood,Urine Trace (Negative); Color,Urine Colorless; Glucose,Urine (UA) Negative (Negative); Ketones,Urine Negative (Negative); Leukocyte Esterase,Urine Large (Negative); Nitrite,Urine Negative (Negative); Protein,Urine Negative (Negative); RBC,Urine 1 /hpf (0-5); Specific Gravity,Urine 1.013 (1.001-1.035); Squamous Epithelial Cell,Urine 1 /hpf (0-4); Urobilinogen,Urine <2.0 mg/dL (<2.0); WBC,Urine 39 /hpf (0-5)
[2022-05-14] MEDS: FUROSEMIDE 10 MG/ML 4 ML VIAL IV SCH (20:20)
[2022-05-15 06:45] LABS: Basophils % (A) 0 %; Eosinophils % (A) 0 %; HCT 42.2 % (34.0-46.0); HGB 13.1 gm/dL (11.4-16.0); Hypochromasia Moderate; Lymphocytes # (A) 0.5 k/uL (1.0-4.8); Lymphocytes % (A) 8 %; MCH 25.8 pg (25.0-35.0); MCHC 30.9 g/dL (31.0-37.0); MCV 83.4 fL (80.0-100.0); Mean Platelet Volume 7.1; Monocytes # (A) 0.3 k/uL (0-1.0); Monocytes % (A) 5 %; Neutrophils # (A) 5.3 k/uL (1.3-7.7); Neutrophils % (A) 85 %; Platelet Count 237 k/uL (150-450); RBC 5.07 m/uL (3.80-5.40); RDW 15.3 % (11.5-15.5); WBC 6.3 k/uL (3.8-10.6)
[2022-05-15 07:31] LABS: Calcium 8.5 mg/dL (8.4-10.2); Magnesium 2.1 mg/dL (1.6-2.3); Potassium 4.7 mmol/L (3.5-5.1)
[2022-05-15] MEDS: FUROSEMIDE 10 MG/ML 4 ML VIAL IV SCH ×2 (08:17→21:00)
[2022-05-15] MEDS ORDERED: METOPROLOL TARTRATE 25 MG TAB PO SCH (09:00)
--- NOTE | 2022-05-15 10:06 | P.PN ---
Subjective Progress Note Date: 05/15/22 Patient is a an 81-year-old female with history of colon cancer, COPD, and hypertension who presented to the ER with complaints of shortness of breath. On arrival her vital signs within normal limits. Initial laboratory analysis and elevated d-dimer at 1.79. She was premedicated due to her iodine ALLERGY and underwent a CT of the chest which revealed no evidence of pulmonary embolism but did demonstrate cardiomegaly and pleural effusions consistent with congestive heart failure. She has a stable right middle lobe nodule. Her EKG demonstated A fib wtih RVR. She was admitted for acute exacerbation of CHF. She was started on IV diuresis. Cardiology was consulted. Patient seen and examined at bedside. She states her breathing is fine, but it typically is when she is lying flat. She has not yet. She denies any chest heaviness. No nausea, vomiting, diarrhea. General: nontoxic, no distress, appears at stated age Derm: warm, dry Head: atraumatic, normocephalic, symmetric Eyes: EOMI, no lid lag, anicteric sclera Mouth: no lip lesion, mucus membranes moist Cardiovascular: S1S2 irreg, no murmur, positive posterior tibial pulse bilateral, Lungs: Decreased bs bilateral, no rhonchi, no rales , no accessory muscle use Abdominal: soft, nontender to palpation, no guarding, no appreciable organomegaly Ext: no gross muscle atrophy, no edema, no contractures Neuro: CN II-XI grossly intact, no focal neuro deficits Psych: Alert, oriented, appropriate affect Assessment/Plan: Newly discovered CHF, suspect diastolic A fib with RVR Severe MR and TR b/l pleural effusions - Lasix - Tele - eliquis - Await cardio recs - had recent echo with Dr. Peacock, await records - metoprolol - lisinopril - strict I and O - Daily weights HTN, controlled - follow BP - Continue metoprolol and lisinopril DVT prophylaxis: Sobeida Discussed with: Patient, nursing Anticipated discharge date: in 1-[address]: home A total of 25 minutes was spent on the care of this complex patient more than 50% of the time was spent in counseling and care coordination. Objective - Vital Signs Vital signs: Vital Signs Temp 97.6 F 05/15/22 03:57 Pulse 88 05/15/22 03:57 Resp 12 05/15/22 03:57 BP 141/89 05/15/22 03:57 Pulse Ox 95 05/15/22 03:57 FiO2 Intake & Output 05/14/22 05/15/22 05/15/22 18:59 06:59 18:59 Intake Total 5 118 Output Total 1325 1000 Balance -1320 -1000 118 Weight 65.317 kg 61.5 kg Intake: IV 5 Invasive Line 1 5 Oral 118 Output: Urine 1325 1000 Other: Voiding Method External Catheter Toilet External Catheter # Voids 3 - Labs CBC & Chem 7: 05/15/22 05:32 05/15/22 05:32 Labs: Abnormal Lab Results - Last 24 Hours (Table) 05/14/22 05/14/22 05/14/22 Range/Units 12:40 12:40 13:20 MCHC (31.0-37.0) g/dL RDW 15.6 H (11.5-15.5) % Lymphocytes # 0.7 L (1.0-4.8) k/uL D-Dimer 1.79 H (<0.60) mg/L FEU BUN 20 H (7-17) mg/dL Creatinine (0.52-1.04) mg/dL Glucose (74-99) mg/dL AST 42 H (14-36) U/L ALT 43 H (4-34) U/L Urine Blood (Negative) Ur Leukocyte Esterase (Negative) Urine WBC (0-5) /hpf Urine Bacteria (None) /hpf 05/14/22 05/15/22 05/15/22 Range/Units 16:55 05:32 05:32 MCHC 30.9 L (31.0-37.0) g/dL RDW (11.5-15.5) % Lymphocytes # 0.5 L (1.0-4.8) k/uL D-Dimer (<0.60) mg/L FEU BUN 24 H (7-17) mg/dL Creatinine 1.08 H (0.52-1.04) mg/dL Glucose 105 H (74-99) mg/dL AST (14-36) U/L ALT (4-34) U/L Urine Blood Trace H (Negative) Ur Leukocyte Esterase Large H (Negative) Urine WBC 39 H (0-5) /hpf Urine Bacteria Rare H (None) /hpf
[2022-05-15] MEDS: APIXABAN 5 MG TAB PO SCH ×2 (11:03→20:59)
--- NOTE | 2022-05-15 11:27 | P.CRDCN ---
History of Present Illness Consult date: 05/15/22 History of present illness: HISTORY OF PRESENT ILLNESS: This is a 81-year-old female with a past medical history significant for congestive heart failure, moderate to severe mitral regurgitation, hypertension, hyperlipidemia, and COPD. Patient follows in the office with Dr. Peacock. We have been asked to see the patient in consultation for congestive heart failure and atrial fibrillation. Patient examined at the bedside. Patient presented to the hospital for chief complaint of shortness of breath. Patient was found to be in acute congestive heart failure. Patient was also found to be in atrial fibrillation with RVR. The patient denies a history of atrial fibrillation. The patient remains in atrial fibrillation with a heart rate between 80 and 120 this morning. She denies chest pain or pressure. She denies palpitations. She reports that Dr. Guardado spoke with her outpatient regarding mitral valve clipping and she was supposed to further discuss this with him at her next follow-up visit. * EKG reveals A. fib with RVR * Chest CT: No evidence of pulmonary embolus and. Cardiomegaly with pleural effusions and consistent with some chronic congestive heart failure. Pleural effusions are new compared to old exam. There is right middle lobe nodule which is stable compared to old exam. * Laboratory data: WBC 6.3. Hemoglobin 13.1. Platelet count 237. Sodium 140. Potassium 4.7. BUN 24. Creatinine 1.08. Troponin negative 1. TSH 0.540. * Current home cardiac medications include Lasix 20 mg daily, lisinopril 5 mg daily, and metoprolol tartrate 25 mg twice a day 6 * Most recent echocardiogram obtained in January 2022 at the cardiology office revealed normal LV function with moderate to severe mitral regurgitation REVIEW OF SYSTEMS: At the time of my exam: CONSTITUTIONAL: Denies fever or chills. HEENT: Denies blurred vision, vision changes, or eye pain. Denies hemoptysis CARDIOVASCULAR: Denies chest pain. Denies orthopnea. Denies PND. Denies palpitations RESPIRATORY: Denies shortness of breath. GASTROINTESTINAL: Denies abdominal pain. Denies nausea or vomiting. HEMATOLOGIC: Denies bleeding disorders. GENITOURINARY: Denies any blood in urine. SKIN: Denies pruitis. Denies rash. PHYSICAL EXAM: VITAL SIGNS: Reviewed. GENERAL: Well-developed in no acute distress. HEENT: Head is normocephalic. Pupils are equal, round. Sclerae anicteric. Mucous membranes of the mouth are moist. Neck supple. No JVD or thyromegaly LUNGS: Respirations even and unlabored. Lungs diminished with a few scattered crackles HEART: Tachycardic. Irregular rate and rhythm. S1 and S2 heard. Systolic murmur noted ABDOMEN: Soft. Nondistended. Nontender. EXTREMITIES: Normal range of motion. No clubbing or cyanosis. Peripheral pulses intact. Trace bilateral lower extremity edema NEUROLOGIC: Awake and alert. Oriented x 3. ASSESSMENT: Shortness of breath Acute on chronic congestive heart failure with preserved ejection fraction New onset atrial fibrillation with RVR Moderate to severe mitral regurgitation Hypertension Hyperlipidemia COPD PLAN: No need to repeat echocardiogram as this was performed in January 2022 Begin Eliquis 5 mg twice a day Continue IV Lasix 40 mg every 12 hours Monitor kidney function Daily weights Accurate I&O Resume home cardiac medications including metoprolol and lisinopril TSH checked and within normal limits Further recommendations pending patient's course Nurse practitioner note has been reviewed by physician. Signing provider agrees with the documented findings, assessment, and plan of care. Past Medical History Past Medical History: Cancer, COPD, Hypertension, Osteoarthritis (OA) Additional Past Medical History / Comment(s): hx. colon cancer 2012-new reoccurence, osteoporosis, recent stress test, UTI History of Any Multi-Drug Resistant Organisms: None Reported Past Surgical History: Bowel Resection, Orthopedic Surgery, Tubal Ligation Additional Past Surgical History / Comment(s): cataract surg., D & C, ORIF left tib/fib, colonoscopy Past Anesthesia/Blood Transfusion Reactions: No Reported Reaction Past Psychological History: No Psychological Hx Reported Smoking Status: Former smoker - Past Family History Sister(s) Family Medical History: Congestive Heart Failure (CHF), Deep Vein Thrombosis (DVT) Medications and Allergies Home Medications Medication Instructions Recorded Confirmed Type lisinopriL [Zestril] 5 mg PO DAILY@0800 06/16/21 05/14/22 History Furosemide [Lasix] 20 mg PO DAILY@0800 10/28/21 05/14/22 History Famotidine [Pepcid] 20 mg PO BID@08,199905/14/22 05/14/22 History Metoprolol Tartrate [Lopressor] 25 mg PO BID@0800,199905/14/2205/14/22 History Multivit-Min/Iron/Folic/Lutein 1 tab PO DAILY@0800 05/14/22 05/14/22 History [Centrum Silver Women Tablet] Apixaban [Eliquis] 5 mg PO BID #60 tab 05/15/22 Rx Allergies Allergy/AdvReac Type Severity Reaction Status Date / Time Iodinated Contrast Media Allergy Rash/Hives Verified 05/14/22 14:51 [Iodinated Contrast- Oral and IV Dye] diazepam AdvReac Confusion Verified 05/14/22 14:51 Physical Exam Vitals: Vital Signs Temp Pulse Pulse Resp BP BP Pulse Ox 05/15/22 08:00 97.9 F 113 H 16 147/75 95 05/15/22 03:57 97.6 F 88 12 141/89 95 05/15/22 00:00 97.5 F L 81 12 137/72 91 L 05/14/22 20:00 97.7 F 98 14 164/83 92 L 05/14/22 16:30 97.6 F 84 16 166/81 96 05/14/22 15:50 102 H 18 135/90 96 05/14/22 14:05 115 H 18 158/103 97 05/14/22 12:36 90 18 150/87 94 L 05/14/22 11:35 97.5 F L 82 18 141/90 96 Intake and Output 05/14/22 05/15/22 05/15/22 22:59 06:59 14:59 Intake Total 5 538 Output Total 1325 1000 800 Balance -1320 -1000 -262 Intake: IV 5 Invasive Line 1 5 Oral 538 Output: Urine 1325 1000 800 Other: Voiding Method Toilet Toilet Toilet External Catheter External Catheter External Catheter # Voids 3 1 Weight 65.317 kg 61.5 kg Results 05/15/22 05:32 05/15/22 05:32 Cardiac Enzymes 05/14/22 05/14/22 Range/Units 13:20 13:20 AST 42 H (14-36) U/L Troponin I <0.012 (0.000-0.034) ng/mL Coagulation 05/14/22 Range/Units 12:40 PT 11.4 (9.0-12.0) sec APTT 24.0 (22.0-30.0) sec CBC 05/14/22 05/15/22 Range/Units 12:40 05:32 WBC 5.7 6.3 (3.8-10.6) k/uL RBC 4.96 5.07 (3.80-5.40) m/uL Hgb 12.9 13.1 (11.4-16.0) gm/dL Hct 41.0 42.2 (34.0-46.0) % Plt Count 234 237 (150-450) k/uL Comprehensive Metabolic Panel 05/14/22 05/15/22 Range/Units 13:20 05:32 Sodium 140 140 (137-145) mmol/L Potassium 4.4 4.7 (3.5-5.1) mmol/L Chloride 106 103 (98-107) mmol/L Carbon Dioxide 23 27 (22-30) mmol/L BUN 20 H 24 H (7-17) mg/dL Creatinine 1.00 1.08 H (0.52-1.04) mg/dL Glucose 89 105 H (74-99) mg/dL Calcium 8.8 8.5 (8.4-10.2) mg/dL AST 42 H (14-36) U/L ALT 43 H (4-34) U/L Alkaline Phosphatase 65 (38-126) U/L Total Protein 6.6 (6.3-8.2) g/dL Albumin 3.9 (3.5-5.0) g/dL Current Medications Generic Name Dose Route Start Last Admin Trade Name Freq PRN Reason Stop Dose Admin Acetaminophen 650 mg 05/14/22 15:55 Acetaminophen Tab 325 Mg Tab PO Q6HR PRN Mild Pain or Fever > 100.5 Apixaban 5 mg 05/15/22 09:00 05/15/22 11:03 Apixaban 5 Mg Tab PO 5 mg BID ANDREINA Administration Protocol Bisacodyl 5 mg 05/14/22 15:55 Bisacodyl 5 Mg Tablet.Dr PO DAILY PRN Constipation Furosemide 40 mg 05/14/22 21:00 05/15/22 08:17 Furosemide 10 Mg/Ml 4 Ml Vial IV 40 mg Q12HR ANDREINA Administration Lisinopril 5 mg 05/16/22 08:00 Lisinopril 5 Mg Tab PO DAILY@0800 ANDREINA Melatonin 3 mg 05/14/22 15:55 Melatonin 3 Mg Tablet PO HS PRN Insomnia Metoprolol Tartrate 25 mg 05/15/22 09:00 05/15/22 08:17 Metoprolol Tartrate 25 Mg Tab PO 25 mg BID ANDREINA Administration Naloxone HCl 0.2 mg 05/14/22 15:04 Naloxone 0.4 Mg/Ml 1 Ml Vial IV Q2M PRN Opioid Reversal Ondansetron HCl 4 mg 05/14/22 15:55 Ondansetron 4 Mg/2 Ml Vial IVP Q8HR PRN Nausea And Vomiting Intake and Output 05/14/22 05/15/22 05/15/22 22:59 06:59 14:59 Intake Total 5 538 Output Total 1325 1000 800 Balance -1320 -1000 -262 Intake: IV 5 Invasive Line 1 5 Oral 538 Output: Urine 1325 1000 800 Other: Voiding Method Toilet Toilet Toilet External Catheter External Catheter External Catheter # Voids 3 1 Weight 65.317 kg 61.5 kg 05/15/22 05:32 05/15/22 05:32
--- NOTE | 2022-05-15 15:05 | XR ---
EXAMINATION TYPE: XR chest 1V portable DATE OF EXAM: 05/15/2022 Comparison: 07/15/2020 Clinical History: 81-year-old female CHF Findings: Heart is now mildly enlarged. Small to moderate left and small right pleural effusions with bibasilar opacity. Relative upper lung lucencies. Some right basilar nodularity noted. Impression: 1. Cardiomegaly and COPD along with small to moderate left and small right pleural effusions with adj acent atelectasis and/or consolidation. Findings likely on the basis of CHF. 2. Right basilar nodularity. Reassess after successful treatment. If the nodule persists, consider tw o-month follow-up to compare from 05/14/2022.
[2022-05-15 16:36] VITALS: BMI 23.3
[2022-05-15] MEDS: METOPROLOL TARTRATE 50 MG TAB PO SCH (20:59)
[2022-05-16] MEDS ORDERED: lisinopriL 5 MG TAB PO SCH (08:00)
[2022-05-16 08:43] LABS: HCT 43.6 % (34.0-46.0); HGB 13.4 gm/dL (11.4-16.0); Hypochromasia Slight; MCH 25.2 pg (25.0-35.0); MCHC 30.7 g/dL (31.0-37.0); MCV 81.9 fL (80.0-100.0); Mean Platelet Volume 6.6; Platelet Count 275 k/uL (150-450); RBC 5.33 m/uL (3.80-5.40); RDW 15.1 % (11.5-15.5); WBC 8.8 k/uL (3.8-10.6)
[2022-05-16 08:54] LABS: Calcium 8.7 mg/dL (8.4-10.2); Magnesium 2.1 mg/dL (1.6-2.3); Potassium 3.7 mmol/L (3.5-5.1)
[2022-05-16 09:12] VITALS: RESP 13
[2022-05-16] MEDS: METOPROLOL TARTRATE 50 MG TAB PO SCH (09:17)
[2022-05-16] MEDS: APIXABAN 5 MG TAB PO SCH (09:17)
[2022-05-16] MEDS: FUROSEMIDE 10 MG/ML 4 ML VIAL IV SCH (09:18)
[2022-05-16 11:51] VITALS: BP 130/88; PULSE 61; TEMP 97.9
--- NOTE | 2022-05-16 12:02 | P.PN ---
Subjective Progress Note Date: 05/16/22 HISTORY OF PRESENT ILLNESS: This is a 81-year-old female with a past medical history significant for congestive heart failure, moderate to severe mitral regurgitation, hypertension, hyperlipidemia, and COPD. Patient follows in the office with Dr. Peacock. We have been asked to see the patient in consultation for congestive heart failure and atrial fibrillation. Patient examined at the bedside. Patient presented to the hospital for chief complaint of shortness of breath. Patient was found to be in acute congestive heart failure. Patient was also found to be in atrial fibrilla tion with RVR. The patient denies a history of atrial fibrillation. The patient remains in atrial fibrillation with a heart rate between 80 and 120 this morning. She denies chest pain or pressure. She denies palpitations. She reports that Dr. Guardado spoke with her outpatient regarding mitral valve clipping and she was supposed to further discuss this with him at her next follow-up visit. * EKG reveals A. fib with RVR * Chest CT: No evidence of pulmonary embolus and. Cardiomegaly with pleural effusions and consistent with some chronic congestive heart failure. Pleural effusions are new compared to old exam. There is right middle lobe nodule which is stable compared to old exam. * Laboratory data: WBC 6.3. Hemoglobin 13.1. Platelet count 237. Sodium 140. Potassium 4.7. BUN 24. Creatinine 1.08. Troponin negative 1. TSH 0.540. * Current home cardiac medications include Lasix 20 mg daily, lisinopril 5 mg daily, and metoprolol tartrate 25 mg twice a day 6 * Most recent echocardiogram obtained in January 2022 at the cardiology office revealed normal LV function with moderate to severe mitral regurgitation 05/16/2022 Patient examined this morning at the bedside. Patient denies chest pain or pressure. Denies SOB. She remains on IV lasix. Her lower extremity edema has resolved. Vital signs are stable. PHYSICAL EXAM: VITAL SIGNS: Reviewed. GENERAL: Well-developed in no acute distress. HEENT: Head is normocephalic. Pupils are equal, round. Sclerae anicteric. Mucous membranes of the mouth are moist. Neck supple. No JVD or thyromegaly LUNGS: Respirations even and unlabored. Lungs diminished HEART: Tachycardic. Irregular rate and rhythm. S1 and S2 heard. Systolic murmur noted ABDOMEN: Soft. Nondistended. Nontender. EXTREMITIES: Normal range of motion. No clubbing or cyanosis. Peripheral pulses intact. No lower extremity edema NEUROLOGIC: Awake and alert. Oriented x 3. ASSESSMENT: Shortness of breath Acute on chronic congestive heart failure with preserved ejection fraction New onset atrial fibrillation with RVR Moderate to severe mitral regurgitation Hypertension Hyperlipidemia COPD PLAN: Continue current cardiac medications Discontinue IV Lasix and transitioned to oral Lasix Patient is currently stable from a cardiac standpoint for discharge home today She is to follow up on an outpatient basis with Dr. Peacock Nurse practitioner note has been reviewed by physician. Signing provider agrees with the documented findings, assessment, and plan of care. Objective - Vital Signs Vital signs: Vital Signs Temp 97.9 F 05/16/22 11:49 Pulse 61 05/16/22 11:49 Resp 13 05/16/22 11:49 BP 130/88 05/16/22 11:49 Pulse Ox 94 L 05/16/22 11:49 FiO2 Intake & Output 05/15/22 05/16/22 05/16/22 18:59 06:59 18:59 Intake Total 1136 250 Output Total 800 800 425 Balance 336 -800 -175 Weight 61.5 kg 59.6 kg Intake: IV 10 Invasive Line 1 10 Oral 1136 240 Output: Urine 800 800 425 Other: Voiding Method Toilet Toilet Toilet External Catheter # Voids 1 1 - Labs CBC & Chem 7: 05/16/22 07:42 05/16/22 07:42 Labs: Abnormal Lab Results - Last 24 Hours (Table) 05/16/22 05/16/22 Range/Units 07:42 07:42 MCHC 30.7 L (31.0-37.0) g/dL BUN 29 H (7-17) mg/dL Glucose 103 H (74-99) mg/dL
--- NOTE | 2022-05-16 15:41 | P.DS ---
Providers Date of admission: 05/14/22 15:04 Expected date of discharge: 05/16/22 Attending physician: Guillermo Leroy MD Consults: 05/14/22 15:04 Consult Physician Urgent Consulting Provider: [facility] Consult Reason/Comments: aechf, afib Do you want consulting provider notified?: Yes Primary care physician: Tomas Vallejo [facility] Course: Discharge Diagnosis: Acute diastolic CHF, with preserved EF A fib with RVR Severe MR and TR b/l pleural effusions HTN, controlled Hospital Course: Patient is a an 81-year-old female with history of colon cancer, COPD, and hypertension who presented to the ER with complaints of shortness of breath. On arrival her vital signs within normal limits. Initial laboratory analysis and elevated d-dimer at 1.79. She was premedicated due to her iodine ALLERGY and underwent a CT of the chest which revealed no evidence of pulmonary embolism but did demonstrate cardiomegaly and pleural effusions consistent with congestive heart failure. She has a stable right middle lobe nodule. Her EKG demonstated A fib wtih RVR. She was admitted for acute exacerbation of CHF. She was started on IV diuresis. Cardiology was consulted.They did not recommned repeat echo at this time, with one complete in january. Her Metoprolol was increassed and she was doing well. Her pleural effusions improved, she felt back to baseline, and she was determined stable for discharge home. Follow-up: Dr. Vallejo on 05/[address] Peacock on 05/24. She was started on eliquis and metoprolol. She will have home health care. She was also started on Lasix. She was referred to the CHF navigator. Patient seen and examined at bedside. Doing well, SOB resolved and chest heviness resolved. Daughter present at bedside and all questions answered. Vital signs reviewed and stable. General: nontoxic, no distress, appears at stated age Derm: warm, dry Head: atraumatic, normocephalic, symmetric Eyes: EOMI, no lid lag, anicteric sclera Mouth: no lip lesion, mucus membranes moist Cardiovascular: S1S2 reg, no murmur, positive posterior tibial pulse bilateral, Lungs: CTA bilateral, no rhonchi, no rales , no accessory muscle use Abdominal: soft, nontender to palpation, no guarding, no appreciable organomegaly Ext: no gross muscle atrophy, trace edema, no contractures Neuro: CN II-XI grossly intact, no focal neuro deficits Psych: Alert, oriented, appropriate affect A total of 32 minutes of time were spent preparing this complex discharge summary. Patient was discharged on 05/16/22. Patient Condition at Discharge: Stable Plan - Discharge Summary Discharge Rx Participant: Yes New Discharge Prescriptions: New Apixaban [Eliquis] 5 mg PO BID #60 tab RX: Metoprolol Tartrate [Lopressor] 50 mg PO BID #60 tab RX: Furosemide [Lasix] 40 mg PO BID@0900,1600 #60 tab Continue RX: lisinopriL [Zestril] 5 mg PO DAILY@0800 RX: Multivit-Min/Iron/Folic/Lutein [Centrum Silver Women Tablet] 1 tab PO DAILY@0800 RX: Famotidine [Pepcid] 20 mg PO BID@799,1999 Discontinued RX: Metoprolol Tartrate [Lopressor] 25 mg PO BID@0800,1999 Furosemide [Lasix] 20 mg PO DAILY@0800 Discharge Medication List RX: lisinopriL [Zestril] 5 mg PO DAILY@0800 06/16/21 [History] RX: Famotidine [Pepcid] 20 mg PO BID@08,199905/14/22 [History] RX: Multivit-Min/Iron/Folic/Lutein [Centrum Silver Women Tablet] 1 tab PO DAILY@0800 05/14/22 [History] Apixaban [Eliquis] 5 mg PO BID #60 tab 05/15/22 [Rx] RX: Furosemide [Lasix] 40 mg PO BID@0900,1600 #60 tab 05/16/22 [Rx] RX: Metoprolol Tartrate [Lopressor] 50 mg PO BID #60 tab 05/16/22 [Rx] Follow up Appointment(s)/Referral(s): Tomas Vallejo MD [Primary Care Provider] - 05/22/22 2:15 pm [facility], [NON-STAFF] - As Needed Ariel Peacock MD [STAFF PHYSICIAN] - 05/24/22 1:15 pm Patient Instructions/Handouts: Heart Failure (DC), A-fib (Atrial Fibrillation) (DC), Pleural Effusion (DC), Dyspnea (DC) Activity/Diet/Wound Care/Special Instructions: Activity: as tolerated Diet: Heart healthy Special Instructions: Daily weights Home health will come out to help you with medications Discharge Disposition: HOME WITH HOME HEALTH SERVICES
[2022-05-16] MEDS ORDERED: FUROSEMIDE 40 MG TAB PO SCH (16:00)
== END 2022-05-16 15:37 | disposition home health service (06) | DRG 291 ==
LOC: EC 11:29 → 3SCARD 15:04
PROVIDERS: ADMIT Family Medicine; ATTEND Family Medicine
DX: I11.0 Hypertensive heart disease with heart failure (principal); I50.33 Acute on chronic diastolic (congestive) heart failure; I48.91 Unspecified atrial fibrillation; I08.1 Rheumatic disorders of both mitral and tricuspid valves; E78.5 Hyperlipidemia, unspecified; J44.9 Chronic obstructive pulmonary disease, unspecified; M81.0 Age-related osteoporosis without current pathological fracture; M19.90 Unspecified osteoarthritis, unspecified site; Z79.899 Other long term (current) drug therapy; Z82.49 Family history of ischemic heart disease and other diseases of the circulatory system; Z85.038 Personal history of other malignant neoplasm of large intestine; Z87.891 Personal history of nicotine dependence; Z91.041 Radiographic dye allergy status; Z83.2 Family history of diseases of the blood and blood-forming organs and certain disorders involving the immune mechanism; Z87.440 Personal history of urinary (tract) infections; Z71.3 Dietary counseling and surveillance
CPT/HCPCS: 36415; 71045; 71275; 80048; 80053; 81001; 83605; 83735; 83880; 84443; 84484; 85025; 85027; 85379; 85610; 85730; 93005; 96374; 96375; 96376; 99285

== ENCOUNTER 2022-06-08 05:56 | Day surgery (SDC) | payer MEDICARE, BC ==
[2022-06-07 09:22] VITALS: BMI 21.4
[2022-06-08] MEDS ORDERED: HEPARIN SODIUM,PORCINE 10,000 UNIT in SODIUM CHLORIDE 0.9% 1,000 ML IRRIGATION PRN (06:01)
[2022-06-08] MEDS ORDERED: NITROGLYCERIN SL TABS 0.4 MG TAB SUBLINGUAL PRN (06:01)
[2022-06-08] MEDS ORDERED: ALPRAZolam 0.5 MG TAB PO PRN (06:01)
[2022-06-08] MEDS ORDERED: ALPRAZolam 0.25 MG TAB PO PRN (06:01)
[2022-06-08] MEDS ORDERED: HEPARIN SODIUM,PORCINE 2,500 UNIT in SODIUM CHLORIDE 0.9% 250 ML IRRIGATION PRN (06:01)
[2022-06-08] MEDS ORDERED: SODIUM CHLORIDE 0.9% 1,000 ML in EMPTY BAG 1 BAG IV ONE (06:01)
[2022-06-08 06:32] VITALS: TEMP 97.9
[2022-06-08] MEDS ORDERED: ATORVASTATIN 80 MG TAB PO ONE (07:00)
[2022-06-08] MEDS ORDERED: ASPIRIN 325 MG TAB PO ONE (07:00)
[2022-06-08] MEDS: BENZOCAINE SPRAY 1 CAN MUCOUS MEM ONE ×2 (07:31→07:44)
[2022-06-08] MEDS ORDERED: SODIUM CHLORIDE 0.9% 1,000 ML IV ONE (07:35)
[2022-06-08] MEDS ORDERED: fentaNYL (PF) 50 MCG/ML 2 ML AMP IV ONE (07:44)
[2022-06-08] MEDS ORDERED: fentaNYL (PF) 50 MCG/ML 2 ML AMP ONE (07:44)
[2022-06-08] MEDS ORDERED: MIDAZOLAM 2 MG/2 ML VIAL IV ONE (07:44)
[2022-06-08] MEDS ORDERED: VERAPAMIL 2.5 MG/ML 2 ML AMP ONE (07:52)
[2022-06-08 07:54] VITALS: RESP 16
[2022-06-08] MEDS ORDERED: LIDOCAINE 1% INJ 10MG/ML (30 ML VIAL-PF) SQ ONE (08:08)
[2022-06-08] MEDS ORDERED: VERAPAMIL SYRINGE (5 MG/10 ML) INTRAARTER ONE (08:09)
[2022-06-08] MEDS ORDERED: HEPARIN SODIUM 1,000 UN/ML (10ML VL) IV ONE (08:26)
[2022-06-08] MEDS ORDERED: IOPAMIDOL-370 125ML BTL INJ ONE (09:19)
[2022-06-08 12:33] VITALS: BP 133/74; PULSE 90
--- NOTE | 2022-06-13 00:55 | CE ---
CARDIAC ELECTROPHYSIOLOGY REPORT PROCEDURE PERFORMED: Transesophageal echocardiogram. INDICATION: Mitral regurgitation. PROCEDURE NOTE: After obtaining informed consent, transesophageal echocardiogram was performed in left lateral position using an Omni plane probe. Local and IV sedation were obtained with Versed, fentanyl and Xylocaine spray. The patient tolerated the procedure well without any obvious immediate complications. Total sedation time was 10 minutes. FINDINGS: 1. Mitral valve, there is moderate to severe posteriorly directed mitral regurgitation noted. 2. The anterior mitral leaflet shows prolapse. 3. Left atrium appears enlarged. 4. Left ventricle has normal size and systolic function. 5. Right atrium and right ventricle seen within normal limits. 6. Aortic valve is a 3-leaflet valve. There is no evidence of aortic stenosis or regurgitation. 7. Aorta shows [id number]-[id number] atherosclerotic changes. 8. There is mild tricuspid regurgitation noted. 9. Interatrial septum, there is no evidence of [id number] shunt by color-flow Doppler or [id number]-[id number] shunt by agitated saline contrast study. CONCLUSIONS: Moderate to severe posteriorly directed mitral regurgitation with prolapse of the anterior mitral leaflet. MMODL / IJN: [id number] /
== END 2022-06-08 13:15 | disposition home or self-care (01) ==
LOC: CATHCVL 05:56
PROVIDERS: ATTEND Internal Medicine Cardiovascular Disease
DX: I48.19 Other persistent atrial fibrillation (principal); I34.1 Nonrheumatic mitral (valve) prolapse; E78.5 Hyperlipidemia, unspecified; J44.9 Chronic obstructive pulmonary disease, unspecified; F17.210 Nicotine dependence, cigarettes, uncomplicated; I11.0 Hypertensive heart disease with heart failure; I50.32 Chronic diastolic (congestive) heart failure
CPT/HCPCS: 93312; 93320; 93325; 93458; C1769 ×2; C1894; J2250; J2001; J3010; J1644; Q9967

== ENCOUNTER → 2022-06-13 | Day surgery (SDC) | payer MEDICARE, BC ==
[~2022-06-13] MED LIST changes: +ALPRAZolam 0.25 MG TAB PO PRN; +ALPRAZolam 0.5 MG TAB PO PRN; +ASPIRIN 325 MG TAB PO STA; +ASPIRIN 81 MG PO SCH; +ATORVASTATIN 40 MG TAB PO SCH; +ATORVASTATIN 80 MG TAB PO STA; +ATROPINE SULFATE 0.1 MG/ML 10ML SYRINGE IV PRN; +CLOPIDOGREL 75 MG TAB ONE; +CLOPIDOGREL 75 MG TAB PO ONE; +CLOPIDOGREL 75 MG TAB PO SCH; -DENOSUMAB 60 MG/ML 1 ML SYRINGE SQ NR; +HEPARIN SODIUM 1,000 UN/ML (10ML VL) IV ONE; +HEPARIN SODIUM 1,000 UN/ML (10ML VL) ONE; +HEPARIN SODIUM,PORCINE 10,000 UNIT in SODIUM CHLORIDE 0.9% 1,000 ML IRRIGATION PRN; +HEPARIN SODIUM,PORCINE 2,500 UNIT in SODIUM CHLORIDE 0.9% 250 ML IRRIGATION PRN; +IOPAMIDOL-370 125ML BTL INJ ONE; +LIDOCAINE 1% INJ 10MG/ML (30 ML VIAL-PF) SQ ONE; +MAG HYDROX/AL HYDROX/SIMETH 30 ML CUP PO PRN; +METOPROLOL TARTRATE 50 MG TAB PO SCH; +NITROGLYCERIN SL TABS 0.4 MG TAB SUBLINGUAL PRN; +RX INFO: IV CONTRAST WAS GIVEN 1 EACH MISC MISCELLANE PRN; +SODIUM CHLORIDE 0.9% 1,000 ML in EMPTY BAG 1 BAG IV SCH; +VERAPAMIL 2.5 MG/ML 2 ML AMP ONE; +VERAPAMIL SYRINGE (5 MG/10 ML) INTRAARTER ONE; +ZOLPIDEM 5 MG TAB PO PRN; +fentaNYL (PF) 50 MCG/ML 2 ML AMP IV ONE; +fentaNYL (PF) 50 MCG/ML 2 ML AMP ONE; +lisinopriL 5 MG TAB PO SCH
[2022-06-13 10:38] VITALS: RESP 16; TEMP 98.1
[2022-06-13 10:45] LABS: Basophils % (A) 0 %; Eosinophils % (A) 0 %; HCT 42.8 % (34.0-46.0); Hypochromasia Slight; Lymphocytes # (A) 0.5 k/uL (1.0-4.8); Lymphocytes % (A) 7 %; MCH 26.7 pg (25.0-35.0); MCHC 32.6 g/dL (31.0-37.0); MCV 81.9 fL (80.0-100.0); Mean Platelet Volume 7.4; Monocytes # (A) 0.3 k/uL (0-1.0); Monocytes % (A) 3 %; Neutrophils # (A) 7.1 k/uL (1.3-7.7); Neutrophils % (A) 89 %; Platelet Count 224 k/uL (150-450); RBC 5.22 m/uL (3.80-5.40); RDW 15.4 % (11.5-15.5); WBC 7.9 k/uL (3.8-10.6)
[2022-06-13 11:11] LABS: Potassium 3.6 mmol/L (3.5-5.1)
--- NOTE | 2022-06-13 13:13 | P.CARDCATH ---
Date of Procedure: 06/13/22 Description of Procedure: PERCUTANEOUS TRANSLUMINAL CORONARY ANGIOPLASTY CLINICAL INFORMATION: The patient is an 82-year-old female with a history of hypertension who presented with symptoms of dyspnea and CHF, underwent cardiac catheterization at Dr. Peacock and was found to have critical stenosis in the pr oximal LAD in a heavily calcified segment. Recommendations were made regarding angioplasty and stenting. The procedure as well as the risks and the complications were discussed with the patient who was in full understanding and agreement. PROCEDURE: The patient was brought to the organic lab worker in the fasting and semi- sedated state after receiving fentanyl and Benadryl and using Xylocaine anesthesia in the Seldinger technique a 6-Afghan sheath was introduced in the right radial artery. A 6 Afghan 3.75 EBU guiding catheter was introduced into the system. After cannulating the left main, a 0.014 BMW J was advanced across the lesion and positioned distally. Following the IVUS [place] eye catheter was advanced and images were obtained. Following that a 3.5 x 12 mm shockwave balloon was advanced and inflated at for atmosphere. Following the system was activated for 2 cycles. Following that a 3.5 x 18 mm Xience porfirio point stent was deployed. It was dilated at 16. Another imaging with the IVUS catheter was done and after removing the catheter a 4.0 x 12 mm NC Treck balloon was advanced and one inflation at the proximal segment at 10 gaetano was done. After the last inflation, after appropriate wait, the balloon and the guidewire were withdrawn back into the guiding catheter. Images were obtained and repeated. Those images reveal stable successful stenting. At that point, the guiding catheter, the balloon, and guidewire were removed. The sheath was removed. Hemostasis was obtained with deployment of a TR band. There were no immediate complications. The patient was returned to the room in stable condition. Of note, the patient received 5000 units of heparin as well as Plavix. Her ACT was followed. There was no immediate complications. She had chest discomfort that resolved at the end of the procedure. RESULTS: Successful stenting of the proximal LAD with reduction of stenosis from 80% to 0 % with use of shockwave balloon. RECOMMENDATIONS: I have recommended to take the treatment for 6 months in addition to aggressive coronary risks modifications. The findings and recommendations were discussed with the patient and the family, they are in full understanding and agreement. Duration of sedation: 35 minutes
[2022-06-13 17:20] VITALS: BP 156/67; PULSE 88
== END | disposition home or self-care (01) ==
LOC: CATHCVL 09:54 → 6NMEDSUR 12:45
PROVIDERS: ATTEND Internal Medicine Interventional Cardiology
DX: I34.0 Nonrheumatic mitral (valve) insufficiency (principal); I25.10 Atherosclerotic heart disease of native coronary artery without angina pectoris; I11.0 Hypertensive heart disease with heart failure; I50.9 Heart failure, unspecified
CPT/HCPCS: 92978; 0715T; 80048; 85025; C9600; C1769 ×3; C1887; C1894; C1725; C1753; C1874; C1761; J2001; J3010; J1644; Q9967

== ENCOUNTER → 2022-06-22 | Outpatient (CLI) | payer MEDICARE, BC ==
[~2022-06-22] MED LIST changes: -ALPRAZolam 0.25 MG TAB PO PRN; -ALPRAZolam 0.5 MG TAB PO PRN; -ASPIRIN 325 MG TAB PO STA; -ASPIRIN 81 MG PO SCH; -ATORVASTATIN 40 MG TAB PO SCH; -ATORVASTATIN 80 MG TAB PO STA; -ATROPINE SULFATE 0.1 MG/ML 10ML SYRINGE IV PRN; -CLOPIDOGREL 75 MG TAB ONE; -CLOPIDOGREL 75 MG TAB PO ONE; -CLOPIDOGREL 75 MG TAB PO SCH; +DENOSUMAB 60 MG/ML 1 ML SYRINGE SQ NR; -HEPARIN SODIUM 1,000 UN/ML (10ML VL) IV ONE; -HEPARIN SODIUM 1,000 UN/ML (10ML VL) ONE; -HEPARIN SODIUM,PORCINE 10,000 UNIT in SODIUM CHLORIDE 0.9% 1,000 ML IRRIGATION PRN; -HEPARIN SODIUM,PORCINE 2,500 UNIT in SODIUM CHLORIDE 0.9% 250 ML IRRIGATION PRN; -IOPAMIDOL-370 125ML BTL INJ ONE; -LIDOCAINE 1% INJ 10MG/ML (30 ML VIAL-PF) SQ ONE; -MAG HYDROX/AL HYDROX/SIMETH 30 ML CUP PO PRN; -METOPROLOL TARTRATE 50 MG TAB PO SCH; -NITROGLYCERIN SL TABS 0.4 MG TAB SUBLINGUAL PRN; -RX INFO: IV CONTRAST WAS GIVEN 1 EACH MISC MISCELLANE PRN; -SODIUM CHLORIDE 0.9% 1,000 ML in EMPTY BAG 1 BAG IV SCH; -VERAPAMIL 2.5 MG/ML 2 ML AMP ONE; -VERAPAMIL SYRINGE (5 MG/10 ML) INTRAARTER ONE; -ZOLPIDEM 5 MG TAB PO PRN; -fentaNYL (PF) 50 MCG/ML 2 ML AMP IV ONE; -fentaNYL (PF) 50 MCG/ML 2 ML AMP ONE; -lisinopriL 5 MG TAB PO SCH
[2022-06-22 10:39] VITALS: BP 131/72; PULSE 65; RESP 16; TEMP 97.9
== END | disposition home or self-care (01) ==
LOC: PROCWHC3 10:15
PROVIDERS: ATTEND Family Medicine
DX: M81.0 Age-related osteoporosis without current pathological fracture (principal)
CPT/HCPCS: 96372; J0897

== ENCOUNTER → 2022-08-16 | Outpatient (CLI) | payer MEDICARE, BC ==
[2022-08-16 15:15] LABS: HCT 39.3 % (37.2-46.3); HGB 11.8 g/dL (12.0-15.0); MCH 24.6 pg (27.0-32.0); MCV 81.9 fL (80.0-97.0); Mean Platelet Volume 9.3 fL (9.5-12.2); NRBC Per 100 WBC 0 /100 WBCS (0.0-0.0); Platelet Count 229 X 10*3/uL (140-440); RDW 15.9 % (11.5-14.5); WBC 6.68 X 10*3/uL (4.50-10.00)
== END | disposition home or self-care (01) ==
LOC: LABWHC1 11:05
PROVIDERS: ATTEND Internal Medicine Cardiovascular Disease
DX: I48.21 Permanent atrial fibrillation (principal)
CPT/HCPCS: 36415; 85027

== ENCOUNTER → 2024-11-21 | Outpatient (CLI) | payer MEDICARE, BC ==
[2024-11-21 19:01] LABS: BUN/Creat Ratio 19.42 Ratio (12.00-20.00); Blood Urea Nitrogen 23.3 mg/dL (9.0-27.0); Glucose 77 mg/dL (70-110)
[2024-11-21 19:02] LABS: Calcium 10.2 mg/dL (8.7-10.3); Carbon Dioxide 23.4 mmol/L (21.6-31.8); Chloride 104 mmol/L (96-109); Potassium 4.5 mmol/L (3.5-5.5); Sodium 143 mmol/L (135-145)
[2024-11-21 21:42] LABS: NT-Pro-B-Type Natriuretic Pept 12518 pg/mL (0-450)
== END | disposition home or self-care (01) ==
LOC: LABWHC1 10:46
PROVIDERS: ATTEND Internal Medicine Cardiovascular Disease
DX: I50.32 Chronic diastolic (congestive) heart failure (principal)
CPT/HCPCS: 36415; 80048; 83880

== ENCOUNTER → 2025-01-05 | Outpatient (CLI) | payer MEDICARE, BC ==
[2025-01-05] MEDS: DENOSUMAB 60 MG/ML 1 ML SYRINGE SQ NR (11:31)
[2025-01-05 11:34] VITALS: BP 97/66; PULSE 75; RESP 16; TEMP 98
== END ==
LOC: PROCWHC3 11:20
PROVIDERS: ATTEND Family Medicine
DX: M81.0 Age-related osteoporosis without current pathological fracture (principal)
CPT/HCPCS: 96372; J0897